=== PATIENT | female | born 1950 | race Caucasian/White ===

== ENCOUNTER → 2023-04-18 08:50 | Outpatient (REF) | payer MEDICARE, SELFPAY ==
[2023-04-18 08:35] VITALS: BMI 28.1
[2023-04-18 09:29] LABS: Urine Albumin Negative (Neg - Trace); Urine Bilirubin Negative (Negative); Urine Character Clear (Clear); Urine Color Yellow; Urine Glucose 2+ (Negative); Urine Ketone Negative (Negative); Urine Leukocyte Negative (Negative); Urine Nitrite Negative (Negative); Urine Occult Blood Trace (Negative); Urine Urobilinogen Negative (Neg - 1+)
[2023-04-18 09:30] LABS: % Eosinophils 1.8 % (0-6); % Immature Granulocytes 0.1 % (0-0.5); % Lymphocytes 25.9 % (20.5-51.1); % Monocytes 11.1 % (1.7-9.3); % Neutrophils 60.1 % (42.2-75.2); Absolute Basophils 0.1 10^3/uL (0-0.2); Absolute Eosinophils 0.1 10^3/uL (0-0.7); Absolute Lymphocytes 1.8 10^3/uL (1.2-3.4); Absolute Monocytes 0.8 10^3/uL (0.1-0.6); Absolute Neutrophils 4.1 10^3/uL (1.4-6.5); Hematocrit 34.6 % (37.0-47.0); Hemoglobin 11.1 g/dL (12.0-16.0); Mean Corp Hgb Conc. 32.1 g/dL (33.0-37.0); Mean Corpuscular Hgb 28.8 pg (27.0-31.0); Mean Corpuscular Volume 89.6 fL (81.0-99.0); Mean Platelet Volume 11.7 fL (7.4-10.4); Nucleated Red Blood Cells % 0 %; Platelet Count 217 10^3/uL (130-400); Red Blood Cell Count 3.86 10^6/uL (4.20-5.40); Red Cell Dist. Width 13.6 % (11.5-14.5); White Blood Cell Count 6.8 10^3/uL (4.8-10.8)
[2023-04-18 09:39] LABS: PT 13.4 Sec (11.4-14.6)
[2023-04-18 09:40] LABS: APTT 33.8 Sec (23.4-35.0)
[2023-04-18 09:45] LABS: ALT (SGPT) 29 U/L (0-35); AST (SGOT) 36 U/L (14-36); Albumin 4.4 g/dl (3.5-5.0); Alkaline Phosphatase 76 U/L (38-126); Blood Urea Nitrogen 18 mg/dl (7-17); Calcium 9.4 mg/dl (8.4-10.2); Carbon Dioxide 25 mmol/L (22-30); Chloride 102 mmol/L (98-107); Direct Bilirubin 0.3 mg/dl (0.0-0.4); Estimated Creatinine Clearance 77 ml/min; Glucose 274 mg/dl (70-99); Potassium 4.2 mmol/L (3.5-5.1); Sodium 138 mmol/L (135-145); Total Bilirubin 0.6 mg/dl (0.2-1.3); Total Protein 7.3 g/dl (6.3-8.2); eGFR > 60.00
[2023-04-18 10:15] LABS: Urine Red Blood Cell 0-2 /HPF (0-2); Urine White Cell 0-2 /HPF (0-5)
--- NOTE | 2023-04-18 10:18 | CM ---
Met with Mrs. Beal is Fernando. She states prior to admission she resides with her spouse in a two story home with five steps to enter. She states she has a full flight of steps to get to bedroom/full bathroom. She states she has a powder room on the
first floor. She states prior to admission she was independent with ambulation and adls. She states she does not have any DME in the home. She states she has a prescription plan and uses [facility]. She states her spouse will be home to
assist in his care at home if needed, The discharge plan is to return home with her spouse and a home visit by the Cardiothoracic Transitional Care Nurse when medically stable.
We reviewed pre-op and post-op routines. We reviewed the shower instructions. She has the soap, written instructions and the Cardiothoracic Surgery Educational Booklet. We also reviewed restrictions including sternal precautions and driving
restrictions. We discussed a home visit by the Cardiothoracic Transitional Care Nurse. She is agreeable to a home visit. The plan is for CABG on April.
[2023-04-18 11:24] LABS: Glycohemoglobin (HgbA1c) 9.5 % (4.0-5.6)
== END ==
LOC: SDSPAT 08:50
PROVIDERS: ATTENDING PHYSICIAN Thoracic Surgery (Cardiothoracic Vascular Surgery); FAMILY PHYSICIAN Family Medicine; OTHER PHYSICIAN Internal Medicine Cardiovascular Disease
DX: I25.10 Atherosclerotic heart disease of native coronary artery without angina pectoris (principal)
CPT/HCPCS: 36415; 71046; 80053; 81003; 81015; 82248; 83036; 85025; 85610; 85730; 86850; 86900; 86901; 86920; 87070; 93005; 94010

== ENCOUNTER → 2023-07-31 07:07 | Outpatient (REF) | payer MEDICARE, SELFPAY | LOC: RAD 07:07 | PROVIDERS: ATTENDING PHYSICIAN Physician Assistant Medical; FAMILY PHYSICIAN Family Medicine | DX: G44.52 New daily persistent headache (NDPH) (principal) | CPT/HCPCS: 70450 ==

== ENCOUNTER 2023-08-02 07:07 | Outpatient (RCR) | payer MEDICARE, SELFPAY ==
[2023-07-26 14:22] LABS: Glucose - Point of Care 198 mg/dl (70-99)
[2023-07-26 14:52] LABS: Glucose - Point of Care 170 mg/dl (70-99)
[2023-07-28 06:35] LABS: Glucose - Point of Care 174 mg/dl (70-99)
[2023-07-28 07:27] LABS: Glucose - Point of Care 190 mg/dl (70-99)
[2023-08-02 07:27] LABS: Glucose - Point of Care 234 mg/dl (70-99)
[2023-08-02 07:27] LABS: Glucose - Point of Care 173 mg/dl (70-99)
== END 2023-08-02 23:59 | disposition home or self-care (01) ==
LOC: CRHB 07:07
PROVIDERS: ATTENDING PHYSICIAN Internal Medicine Cardiovascular Disease
DX: I25.10 Atherosclerotic heart disease of native coronary artery without angina pectoris (principal); Z95.1 Presence of aortocoronary bypass graft
CPT/HCPCS: 82962; G0422; G0423

== ENCOUNTER 2023-08-09 06:48 | Outpatient (RCR) | payer MEDICARE, SELFPAY ==
[2023-08-04 06:45] LABS: Glucose - Point of Care 162 mg/dl (70-99)
[2023-08-04 07:33] LABS: Glucose - Point of Care 232 mg/dl (70-99)
[2023-08-07 06:44] LABS: Glucose - Point of Care 180 mg/dl (70-99)
[2023-08-07 07:45] LABS: Glucose - Point of Care 258 mg/dl (70-99)
[2023-08-09 06:40] LABS: Glucose - Point of Care 164 mg/dl (70-99)
[2023-08-09 07:31] LABS: Glucose - Point of Care 276 mg/dl (70-99)
== END 2023-08-09 23:59 | disposition home or self-care (01) ==
LOC: CRHB 06:48
PROVIDERS: ATTENDING PHYSICIAN Internal Medicine Cardiovascular Disease
DX: I25.10 Atherosclerotic heart disease of native coronary artery without angina pectoris (principal); Z95.1 Presence of aortocoronary bypass graft
CPT/HCPCS: 82962; G0422; G0423

== ENCOUNTER → 2023-08-10 13:51 | Outpatient (REF) | payer MEDICARE, SELFPAY | LOC: DHVS 13:51 | PROVIDERS: ATTENDING PHYSICIAN Surgery Vascular Surgery; FAMILY PHYSICIAN Family Medicine | DX: I65.23 Occlusion and stenosis of bilateral carotid arteries (principal) | CPT/HCPCS: 93880 ==

== ENCOUNTER 2023-08-23 06:17 | Inpatient (IN) | payer MEDICARE, SELFPAY ==
[2023-08-18 10:55] VITALS: BMI 25.7
[2023-08-18 11:21] LABS: INR 1.02; PT 13.2 Sec (11.4-14.6)
[2023-08-18 11:32] LABS: % Basophils 0.9 % (0-2); % Eosinophils 2.7 % (0-6); % Immature Granulocytes 0.3 % (0-0.5); % Monocytes 9.2 % (1.7-9.3); % Neutrophils 59.9 % (42.2-75.2); Absolute Basophils 0.1 10^3/uL (0-0.2); Absolute Eosinophils 0.2 10^3/uL (0-0.7); Absolute Lymphocytes 2.4 10^3/uL (1.2-3.4); Absolute Monocytes 0.8 10^3/uL (0.1-0.6); Absolute Neutrophils 5.3 10^3/uL (1.4-6.5); Hematocrit 33.8 % (37.0-47.0); Hemoglobin 10.7 g/dL (12.0-16.0); Mean Corp Hgb Conc. 31.7 g/dL (33.0-37.0); Mean Corpuscular Hgb 27.7 pg (27.0-31.0); Mean Corpuscular Volume 87.6 fL (81.0-99.0); Nucleated Red Blood Cells % 0 %; Platelet Count 277 10^3/uL (130-400); Red Blood Cell Count 3.86 10^6/uL (4.20-5.40); Red Cell Dist. Width 14.6 % (11.5-14.5); White Blood Cell Count 8.8 10^3/uL (4.8-10.8)
[2023-08-18 11:43] LABS: Blood Urea Nitrogen 21 mg/dl (7-17); Calcium 9.1 mg/dl (8.4-10.2); Carbon Dioxide 27 mmol/L (22-30); Chloride 105 mmol/L (98-107); Estimated Creatinine Clearance 70 ml/min; Glucose 251 mg/dl (70-99); Potassium 4.4 mmol/L (3.5-5.1); Sodium 136 mmol/L (135-145); eGFR > 60.00
--- NOTE | 2023-08-18 12:09 | PTCARENOTE ---
Suzanne at 's office was notified of blood glucose of 251 collected today.
[2023-08-23] VITALS (13 sets, daily range): BP systolic 69–154; BP diastolic 46–80; BMI 27.3
[2023-08-23] MEDS: PERIDEX 0.12% ORAL RINSE 15 ML PO (06:28)
[2023-08-23] MEDS: BACTROBAN NASAL 1 GRAM NASAL (06:28)
[2023-08-23] MEDS: NSS 500 IV (06:29)
--- NOTE | 2023-08-23 06:33 | W.SUR.PREOP ---
Pre-Operative Surgical Note
-
I have examined this patient prior to the performance of the scheduled procedure.
The patient's condition is unchanged from the time of the current History and
Physical and the patient is able to undergo the scheduled procedure.
[2023-08-23 06:54] LABS: Glucose - Point of Care 162 mg/dl (70-99)
--- NOTE | 2023-08-23 09:19 | W.SUR.POST ---
Surgical Immediate Post Op
Note
Pre Op Diagnosis: Left carotid stenosis
Post Op Diagnosis: Left carotid stenosis
Procedure Performed: Left carotid endarterectomy with bovine pericardium patch angioplasty and EEG/SSEP monitoring
Primary Surgeon: Gerson Rowley MD
Assist: GILDA Young
Anesthesia: GETA
Estimated Blood Loss: 15 ml
Fluids: See anesthesia flowsheet
Drains/Shunts: N/A
Specimens/Cultures: Left carotid plaque
Doppler/Duplex/Angio (Y/N): Y
Complications: None
Operative Findings: Upon awakening from anesthesia moves bilateral upper extremities and lower extremities to command and spontaneously
[2023-08-23 09:27] LABS: Glucose - Point of Care 245 mg/dl (70-99)
[2023-08-23 10:02] LABS: Hematocrit 31.1 % (37.0-47.0); Hemoglobin 9.8 g/dL (12.0-16.0); Mean Corp Hgb Conc. 31.5 g/dL (33.0-37.0); Mean Corpuscular Hgb 27.9 pg (27.0-31.0); Mean Corpuscular Volume 88.6 fL (81.0-99.0); Red Blood Cell Count 3.51 10^6/uL (4.20-5.40); Red Cell Dist. Width 14.5 % (11.5-14.5)
[2023-08-23 10:17] LABS: Blood Urea Nitrogen 18 mg/dl (7-17); Calcium 8.5 mg/dl (8.4-10.2); Carbon Dioxide 21 mmol/L (22-30); Chloride 102 mmol/L (98-107); Estimated Creatinine Clearance 70 ml/min; Glucose 267 mg/dl (70-99); Sodium 134 mmol/L (135-145); eGFR > 60.00
[2023-08-23 10:23] LABS: INR 1.18
[2023-08-23] MEDS: NSS 1000 IV (10:23)
--- NOTE | 2023-08-23 10:23 | OR.RPT ---
Operative Report
Operative Report
PROCEDURE DATE: 08/23/2023
Preoperative diagnosis: Critical left carotid artery stenosis, asymptomatic.
Postoperative diagnosis: Same
Procedure: Left carotid endarterectomy with bovine pericardial patch angioplasty and intraoperative EEG/SSEP monitoring.
Surgeon: Amrik
Electrician Supervisor Substation: Catherine
Complications: None
Anesthesia: General
Indications for procedure:
Severe left carotid artery stenosis. Discussed risk/benefits/alternatives of revascularization. She recently completed coronary revascularization. Recovered well from that standpoint. Patient understood all wish to proceed with left carotid
endarterectomy.
Description of procedure:
Patient was identified brought to the operating room placed on the table in supine position. After the adequate administration of anesthesia and perioperative antibiotics she was prepped and draped in the standard surgical fashion. A standard
preoperative timeout was undertaken and everybody was in agreement the plan. A standard longitudinal incision was made in the left neck that was carried through the skin subcutaneous tissue. Using the electrocautery dissection was carried through
the platysma muscle layer and then alongside the anterior medial border of the sternocleidomastoid muscle. Then using a combination of sharp dissection with the Metzenbaum scissors and electrocautery I dissected along the anterior medial border of
the internal jugular vein. The common facial vein branch was ligated between silk ties and then divided. I then deepened my retraction. The common carotid artery was identified and carefully dissected away from the surrounding structures take
great care to avoid any injury to the structures. A vessel loop was passed around it which was double looped, but not yet tightened. Note the vagus nerve was protected from harm's way. I then continued my dissection up the common carotid artery
to the bulb staying only on the anterior surface of the carotid artery. I could palpate hardened plaque at the carotid bulb/proximal internal carotid artery. Then I carried the dissection up to the internal carotid artery and then to the distal
internal carotid artery. I identified where it was soft and carefully circumferentially dissected the internal carotid artery with minimal mobilization and passed a vessel loop around it. Note the hypoglossal nerve was preserved from harm's way.
The patient was given an appropriate dose of heparin 6800 units. Next I dissected the anterior surface of the external carotid artery and superior thyroid branches. These were then carefully circumferentially dissected with minimal mobilization
and vessel loops passed around these which were double looped but not yet tightened. After 3 minutes of heparin circulation time and confirmation of optimization of the blood pressure with my anesthesiology colleagues, I clamped the distal internal
carotid artery where it was soft. There was no immediate EEG or SSEP changes. After 1 minute of test clamp time there was no changes noted. Therefore at this point, the vessel loops on the external carotid artery and superior thyroid branches
were tightened and the common carotid artery was clamped where it was soft proximally. An arteriotomy was made on the common carotid artery with an 11 blade and extended using a Garcia scissor. Was extended the arteriotomy onto the mid to distal
internal carotid artery. Hard and calcified plaque slightly friable, in the proximal ICA resulting in severe stenosis was noted. A Ulster was then used to endarterectomized the plaque. An endarterectomy plane was created, and the plaque was then
endarterectomized. Distally I feathered the plaque out to a nice clean endpoint in the distal internal carotid artery. Next I endarterectomized the intima back to normal intima in the common carotid artery, and the intima was cut flush there. I
then grasped the plaque and everted plaque out of the origin of the external carotid artery. The plaque was then sent off for specimen. The origin of the external carotid artery was carefully visualized and any fine debris were removed with fine
forceps. Proximal and distal endpoints were then carefully inspected. Any fine debris was removed with fine forceps, and the intima was noted to be nicely adherent proximally distally. Next any fine debris were removed throughout the
endarterectomy bed with fine forceps. I then flushed heparinized saline. I was very satisfied. Then, I used a bovine pericardial patch to sew a patch angioplasty with a running 6-0 Prolene suture. Prior to completing and tying down my suture
line, I backbled sequentially each branch and reclamped each branch prior to unclamping the next branch. I then irrigated with heparinized saline. Then I completed and tied down my suture line. We then restored flow in the common carotid and
external carotid arteries. Finally, we released flow in the internal carotid artery. There was excellent pulsatile flow in all 3 vessels. There was an excellent Doppler signal in the internal carotid artery distal to the patch with a good normal
low resistance Doppler signal. There was a good Doppler signal in the external carotid artery as well. A couple 6-0 Prolene afradd-fz-clhft sutures were placed along any bleeding points along the suture line. Protamine was given to reverse the
heparin. Hemostasis was completely achieved. We then irrigated and confirmed full hemostasis. We then closed in layers with 2-0 Vicryl layer to reapproximate the sternocleidomastoid muscle, followed by 3-0 Vicryl platysma muscle running layer,
followed by 4 Monocryl subcuticular stitch. Dermabond was applied. The patient tolerated procedure well. She awoke moving all extremities to command with tongue in the midline.
[2023-08-23 10:24] LABS: APTT 34.7 Sec (23.4-35.0)
--- NOTE | 2023-08-23 10:41 | W.PV.INTER ---
VPI Note
Pre Admission Note
Functional Status: Full
Ambulation: Ambulate Independently
Pre Op Medications
Pre Op ASA: Yes
Pre Op Statin: Yes
Pre Op ANITRA Inhibitor/ARB: No
Pre Op P2y12 Antagonist: None
Pre Op Beta Blockers: Chronic > 30 Days
Pre Op Chronic Anticoagulant: None
Pre Op Cilostazol: No
Post Op Medications
Post Op ASA: Yes
Post Op Statin: Yes
Post Op ANITRA Inhibitor/ARB: No
Post Op P2y12 Antagonist: None
Post Op Beta Blockers: Chronic > 30 Days
Post Op Chronic Anticoagulant: None
Post Op Cilostazol: No
Modified Brenna
Pre Op: 0
Post Op: 0
[2023-08-23 10:45] LABS: Glucose - Point of Care 262 mg/dl (70-99)
[2023-08-23 10:54] LABS: Platelet Count 189 10^3/uL (130-400)
[2023-08-23] MEDS: NOVOLOG vial 8 UNITS SC (11:01)
--- NOTE | 2023-08-23 11:16 | CON.INTV ---
Consultation
Consultation Request
Date/Time Consultation Requested: 08/23/2023-12
Date/Time Consultation Performed: 08/23/2023-2 PM
Requesting Provider: Vascular surgery
Performing Provider: Dr. Pinto
Reason for Consultation: Postop critical care management
Medical History
-
Chief Complaint: Asymptomatic critical left carotid artery stenosis
History of Present Illness:
73-year-old female with asymptomatic critical left carotid artery stenosis underwent left carotid endarterectomy and paper reclaiming machine operator consulted for postoperative critical care management 08/23/2023. Patient feels well. I am seeing her postoperatively in
the surgical intensive care unit. She denies any shortness of breath, significant incisional pain, new weakness, dysarthria, chest pain, abdominal pain, nausea or other constitutional symptoms.
Past Medical History
Past Medical History: None (Hypertension. Hyperlipidemia. Osteopenia. Crohn's disease. CAD/CABG. Diabetes. Ovarian cyst status post oophorectomy 2010. Depression. Former bnhdbr-52-fkvy-year quit 58 years old. ELISE not on CPAP.)
Past Surgical History: None (Bilateral salpingo-oophorectomy. CABG.)
Social History
Tobacco: Former Smoker ([id number]-hvbp-year quit 58 years old)
Alcohol: None
Drug: None
Personal:
Living: With Family
Occupational Exposures: No known asbestos exposure
Environmental Exposures: No known tuberculosis exposure
Family History
Family History: Reviewed & Not Pertinent
Allergies / Home Medications
Allergies
Allergy/AdvReac Type Severity Reaction Status Date / Time
acetaminophen [From Percocet] Allergy Severe Pharmacy Verified 08/23/23 07:05
to Review
oxycodone [From Percocet] Allergy Severe Pharmacy Verified 08/23/23 07:06
to Review
Home Medications
Medication Instructions Recorded Confirmed Last Taken Type
aspirin 81 mg tablet,delayed 81 mg PO DAILY Blood Clot 07/05/10 08/23/23 08/23/23 05:00 History
release Prevention/Tx
cholecalciferol (vitamin D3) 50 50 mcg PO QPM Supplement 03/29/23 08/23/23 08/22/23 10:00 History
mcg (2,000 unit) capsule (Vitamin
D3)
citalopram 20 mg tablet 20 mg PO DAILY Mental 03/29/23 08/23/23 08/22/23 10:00 History
Health/Anxiety
dulaglutide 0.75 mg/0.5 mL 1.5 mg SC MO Diabetes 03/29/23 08/17/23 06/14/23 History
subcutaneous pen injector
(Trulicity)
fluticasone propionate 50 1 spray intranasal DAILY PRN 03/29/23 08/23/23 08/22/23 10:00 History
mcg/actuation nasal ALLERGIES
spray,suspension
metformin 1,000 mg tablet 1,000 mg PO BID Diabetes 03/29/23 08/23/23 08/22/23 18:00 History
nitroglycerin 0.4 mg sublingual 0.4 mg sublingual Q5-15M PRN CHEST 03/29/23 08/17/23 Unknown History
tablet PAIN
repaglinide 2 mg tablet 2 mg PO BID Diabetes 03/29/23 08/23/23 08/22/23 18:00 History
acetaminophen 325 mg tablet 650 mg PO Q4HPRN PRN mild 06/24/23 08/17/23 Unknown Rx
pain,headache,temp >101F #0 tabs
atorvastatin 80 mg tablet (Lipitor) 80 mg PO DAILY #30 tabs 06/24/23 08/23/23 08/22/23 10:00 Rx
metoprolol succinate 25 mg 25 mg PO DAILY 08/23/23 08/23/23 08/23/23 05:00 History
tablet,extended release 24 hr
multivitamin 1 tab PO DAILY 08/23/23 08/23/23 08/22/23 10:00 History
Review of Systems
-
Unable to Obtain full review of systems at this time due to: Other (Per HPI)
Vitals / Labs / Diagnostic Testing
Vital Signs
Temp Pulse Resp BP Pulse Ox
98.0 F 93 13 102/60 99
08/23/23 11:08 08/23/23 11:00 08/23/23 11:00 08/23/23 09:45 08/23/23 11:08
Lab Data
08/23/23 09:50
08/23/23 09:50
Laboratory Results
08/23/23
09:50
PT 15.0 H
INR 1.18
APTT 34.7
Diagnostic Testing:
Physical Exam
-
Exam:
Well-nourished and well-developed in no apparent distress
HEENT-atraumatic, normocephalic
Neck-supple, no JVD, no bruit
Heart-regular rate and rhythm-no murmurs, rubs or gallops
Chest-clear to auscultation, no wheezes, crackles
Back-no tenderness
Abdomen-soft, nontender, nondistended, no hepatosplenomegaly
Extremities-no cyanosis, clubbing, edema and good peripheral pulses
Integument-intact, no rashes, lesions or ecchymosis
Neurology-alert and oriented, nonfocal motor and sensory exam
Assessment
-
73-year-old female with asymptomatic critical left carotid artery stenosis underwent left carotid endarterectomy and paper reclaiming machine operator consulted for postoperative critical care management 08/23/2023.
Assessment
Asymptomatic left carotid artery stenosis
Status post left carotid endarterectomy-Dr. Rowley-08/23/2023
Mild leukocytosis-WBC 12
Hgizhr-dithonqsdh-buupfcnzpe 9.8
Conditions present prior to admission:
Hypertension.
Hyperlipidemia.
Osteopenia.
Crohn's disease.
CAD/CABG-06/2023
Diabetes.
Ovarian cyst status post oophorectomy 2010.
Depression.
Former oeegae-79-jxav-year quit 58 years old.
ELISE not on CPAP.
Neuropathy
Bilateral salpingo-oophorectomy. CABG.
Plan
Postoperative surgical intensive care unit monitoring
Supplemental oxygen as needed
Incentive spirometry
Aspiration precautions
Nebulizers if needed-currently not bronchospastic
Neuro and vascular checks per protocol
Vascular surgery following-correspondence and operative notes reviewed
DVT prophylaxis
Early nutrition
Early mobilization
Critical care statement: A total of 50 minutes of critical care time was provided for this patient today. This includes management of unstable vital signs, evaluation of the patient at bedside, reviewing the patient's pertinent medical records
including radiographs, microbiology, laboratory evaluations, and discussion with primary team, consultants, pharmacy, nutrition, physical therapy, case management, charge nurse, critical care nursing, and respiratory therapy.
Diagnostic data:
Chest x-ray 06/24/2023-small bilateral pleural effusions and compressive atelectasis at the left lung base
CT head 07/31/2023-no acute intracranial abnormalities
Vascular ultrasound 08/10/2019 4-50-70 % right carotid artery stenosis, left internal greater than 70% stenosis suggestive of left subclavian stenosis as well
Transesophageal echocardiogram 06/20/2023-EF 70-75%, status post left atrial appendage clip well-seated,
Data Reviewed
-
EKG: Report reviewed by me
Radiology: Report reviewed by me
CT Scan: Report reviewed by me
Ultrasound: Report reviewed by me
Medical Tests (Nuc Med, Echo etc): Report reviewed by me
Labs: Labs reviewed by me
Old Records: Reviewed
Critical Care Time (in minutes): 50
[2023-08-23] MEDS: TYLENOL 650 MG PO ×2 (11:57→23:23)
[2023-08-23] MEDS: NEO-SYNEPHRINE 250 IV (12:15)
--- NOTE | 2023-08-23 12:51 | PTCARENOTE ---
Received patient post op Left CEA. Site intact, ice pack to sit for comfort. Patient c/c of dull left side headache, patient states has had headache since July post cabg. Patient also reviewing allergies to update pharmacy. Had reaction to
Percocet 20plus years ago symptom was racing heart beat. Patient then stated that she has OxyContin and Tylenol since then with no further issues. Continue to update patient historical. Follow up neurological checks, VS trends and ongoing
assessment.
[2023-08-23 17:03] LABS: Glucose - Point of Care 174 mg/dl (70-99)
[2023-08-23] MEDS: GLUCOPHAGE 1000 MG PO (17:17)
[2023-08-23] MEDS: VITAMIN D3 (cholecalciferol) 50 MCG PO (17:17)
[2023-08-23] MEDS: NOVOLOG FLEXPEN-MODERATE RESISTANCE 1 UNITS SC (18:05)
--- NOTE | 2023-08-23 18:15 | PTCARENOTE ---
No new assessment changes. BP improving wean neosynephrine off at this assessment. Dr Rowley and vascular team at bedside for pm update. Continue follow up neurologic checks. Patient remains AAOX3, tongue midline smile symmetrical still with dull
headache unchanged thru shift and same intensity as in past noted by vascular team. Continue to monitor for any changes. Dinner at this time. Continue with teaching and supportive cares.
[2023-08-23] MEDS: HEPARIN 5000 UNITS SC (19:51)
[2023-08-23] MEDS: NSS IV (21:27)
[2023-08-23 21:44] LABS: Glucose - Point of Care 270 mg/dl (70-99)
--- NOTE | 2023-08-23 23:12 | PTCARENOTE ---
pt assessed as documented. had a friend in to visit earlier. in good spirits. alert and oriented x3. pleasant and cooperative. no c/o pain.
[2023-08-24] VITALS: BP 104/87
[2023-08-24 04:00] VITALS: BP 121/61
[2023-08-24 04:43] LABS: Hematocrit 29.1 % (37.0-47.0); Hemoglobin 9.1 g/dL (12.0-16.0); Mean Corp Hgb Conc. 31.3 g/dL (33.0-37.0); Mean Corpuscular Hgb 27.5 pg (27.0-31.0); Mean Corpuscular Volume 87.9 fL (81.0-99.0); Mean Platelet Volume 11.3 fL (7.4-10.4); Platelet Count 208 10^3/uL (130-400); Red Blood Cell Count 3.31 10^6/uL (4.20-5.40); Red Cell Dist. Width 14.5 % (11.5-14.5); White Blood Cell Count 11.8 10^3/uL (4.8-10.8)
[2023-08-24 04:53] LABS: INR 1.14; PT 14.6 Sec (11.4-14.6)
[2023-08-24 04:55] LABS: APTT 33.1 Sec (23.4-35.0)
--- NOTE | 2023-08-24 05:03 | PTCARENOTE ---
pt reassessed, no c/o pain, headache subsided. labs drawn. pt using the bedpan.
[2023-08-24 05:06] VITALS: BMI 27.3
[2023-08-24 05:17] LABS: Blood Urea Nitrogen 20 mg/dl (7-17); Calcium 8.8 mg/dl (8.4-10.2); Carbon Dioxide 21 mmol/L (22-30); Chloride 105 mmol/L (98-107); Estimated Creatinine Clearance 79 ml/min; Glucose 181 mg/dl (70-99); Potassium 4.3 mmol/L (3.5-5.1); Sodium 135 mmol/L (135-145); eGFR > 60.00
--- NOTE | 2023-08-24 07:37 | W.PN.INTV ---
Today's Communication / Plan
Recommendations
Neurovascularly intact
Increase activity
Advance diet
Patient likely transferred to telemetry or discharged-call pulmonary if respiratory issues arise
Assessment
-
73-year-old female with asymptomatic critical left carotid artery stenosis underwent left carotid endarterectomy and pro shop attendant consulted for postoperative critical care management 08/23/2023.
Assessment
Asymptomatic left carotid artery stenosis
Status post left carotid endarterectomy-Dr. Rowley-08/23/2023
Mild leukocytosis-WBC 12
Gyqbpw-qnydxdvzaa-wwhzzncgrg 9.8
Conditions present prior to admission:
Hypertension.
Hyperlipidemia.
Osteopenia.
Crohn's disease.
CAD/CABG-06/2023
Diabetes.
Ovarian cyst status post oophorectomy 2010.
Depression.
Former haeuix-83-oiev-year quit 58 years old.
ELISE not on CPAP.
Neuropathy
Bilateral salpingo-oophorectomy. CABG.
Plan
Hemodynamically and neurovascularly intact
Wean supplemental oxygen
Incentive spirometry encourage
Aspiration precautions
Monitor hemoglobin
Transfuse if needed
Monitor blood sugars
Insulin supplementation if needed
Neuro and vascular checks per protocol also continue
Vascular surgery closely
DVT prophylaxis recommended
Nutrition
Increase activity/physical therapy
Patient can be transferred out of ICU-call pulmonary if respiratory issues arise
Reviewed the patient's pertinent medical records including radiographs, microbiology, laboratory evaluations, and discussion with primary team, consultants, pharmacy, nutrition, physical therapy, case management, charge nurse, critical care
nursing, and respiratory therapy.
Diagnostic data:
Chest x-ray 06/24/2023-small bilateral pleural effusions and compressive atelectasis at the left lung base
CT head 07/31/2023-no acute intracranial abnormalities
Vascular ultrasound 08/10/2019 4-50-70 % right carotid artery stenosis, left internal greater than 70% stenosis suggestive of left subclavian stenosis as well
Transesophageal echocardiogram 06/20/2023-EF 70-75%, status post left atrial appendage clip well-seated,
Subjective Dataa
Subjective Data
Date of Service:
Date of Service: August 24, 2023
Chief Complaint: Check Weigher Follow Up and Pulmonary Follow Up
Subjective:
Doing well, no neurologic symptoms, no shortness of breath, chest pain, abdominal pain, weakness, numbness or speech difficulties
Review of Systems
General: Other (Per HPI)
Objective Data
Data Reviewed
Vital Signs / I&O / Oxygen:
Vital Signs
Temp Pulse Resp BP Pulse Ox
98.0 F 95 20 121/61 98
08/24/23 03:39 08/24/23 06:00 08/24/23 06:00 08/24/23 04:00 08/23/23 21:19
Intake and Output
08/23/23 08/24/23 08/25/23
06:59 06:59 06:59
Intake Total 1458 / 1458
Output Total 1250 / 1250
Balance 208 / 208
SaO2 98
Nasal Cannula flow liters per 2
minute
Physical Exam
General: Respiratory Distress (n) and Comfortable
HEENT: Normocephalic, Anicteric and Moist Mucous Membranes
Cardiovascular: Regular Rhythm
Respiratory: Wheeze (n), Crackles (n), Rhonchi (n), Non-Labored Respirations, Accessory Resp Muscle Use (n) and Stridor (n)
GI: Soft, Non Distended and Non Tender
Neurology: Awake, Alert and No Motor Deficits
Skin: Warm, Good Color, Cyanosis (n), Jaundice (n) and Rash (n)
Labs/Micro/Reports
Lab Data
08/24/23 04:36
08/24/23 04:36
Laboratory Results
08/23/23 08/24/23
09:50 04:36
PT 15.0 H 14.6
INR 1.18 1.14
APTT 34.7 33.1
--- NOTE | 2023-08-24 07:42 | W.PN.VS ---
Addendum entered and electronically signed by Gerson Rowley MD 08/24/23 10:41:
Seen and examined with CARMEN Alexander. Agree with findings as noted below. Patient without any complaints. Left neck incision is clean dry and intact, no hematoma. Neurologically no focal deficits, moves all extremities well, tongue midline. Plan/as
discussed and noted below.
Original Note:
Today's Communication / Plan
-
Seen and assessed Dr. Rowley
Assessment/Plan
-
POD 1 left CEA
Plan:
-DC A-line
-DC IV fluids
-Out of bed to chair/ambulate
-Increase diet
-Likely DC later today
Subjective Data
-
Date of Service: August 24, 2023
Patient seen at bedside this a.m. with Dr. Rowley. Patient offers no complaints at this time, no events overnight.
Objective Data
-
Vital Signs
Temp Pulse Resp BP Pulse Ox
98.0 F 95 20 121/61 98
08/24/23 03:39 08/24/23 06:00 08/24/23 06:00 08/24/23 04:00 08/23/23 21:19
Intake and Output
08/23/23 08/24/23 08/25/23
06:59 06:59 06:59
Intake Total 1458 / 1458
Output Total 1250 / 1250
Balance 208 / 208
Intake:
Oral fluids 720 / 720
IV fluids (Total) 738 / 738
NSS 640 / 640
Neosynephrine 18 / 18
Nss 1,000 ml @ 80 mls/hr IV . 80 / 80
[id number] [id number] Rx#:[id number]
Output:
Urine, Voided 1250 / 1250
Other:
Number of approximated LARGE 1
amounts of urine
Lab Results
08/24/23 04:36
08/24/23 04:36
Calcium 8.8 mg/dl (8.4-10.2) 08/24/23 04:36
Physical Exam
-
AAOx3
No tachypnea on room air
No tachycardia
Abdomen soft
Neck site clean dry and intact and well-approximated
Moves all extremities equally
Tongue midline
[2023-08-24 07:43] LABS: Glucose - Point of Care 164 mg/dl (70-99)
[2023-08-24 08:00] VITALS: BP 127/59
[2023-08-24 08:42] LABS: Glycohemoglobin (HgbA1c) 7.4 % (4.0-5.6)
[2023-08-24] MEDS: NOVOLOG FLEXPEN-MODERATE RESISTANCE 1 UNITS SC (08:46)
[2023-08-24] MEDS: ASPIR LOW (ENTERIC COATED) 81 MG PO (08:47)
[2023-08-24] MEDS: GLUCOPHAGE 1000 MG PO (08:47)
[2023-08-24] MEDS: TOPROL XL 25 MG PO (08:47)
[2023-08-24] MEDS: CELEXA 20 MG PO (08:47)
[2023-08-24] MEDS: THERAGRAN 1 TABLET PO (08:47)
[2023-08-24] MEDS: HEPARIN 5000 UNITS SC (08:47)
[2023-08-24] MEDS: PRANDIN 2 MG PO (08:47)
[2023-08-24] MEDS: LIPITOR 80 MG PO (08:47)
[2023-08-24 10:17] VITALS: BP 131/57
--- NOTE | 2023-08-24 10:45 | CM ---
CM following re: discharge planning.
Discussed in Rounds, reviewed pt's chart, met with pt.
Pt is a 73 year old female, admitted with primary dx of POD 1 s/p left CEA. Per Vascular surgery pt is doing well, no complaints and pt probably will be discharged home this afternoon. Pt is aware, expressed her agreement with a plan for discharge
and pt stated her will transport home. IMM reviewed, placed in chart, pt has a copy.
Pt reports she lives with and a son in a 2SH, 3 steps to enter. 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 No DME, VN or SNF history.
PCP: Masood Quiroz
Pharmacy: [facility]
D/C plan: home with no needs. to transport.
CM will follow with discharge plan updates as hospitalization progresses
--- NOTE | 2023-08-24 11:28 | PTCARENOTE ---
Received pt AOx3, R radial A line dc'd as ordered, dressing now c/d/i. Assisted OOB to bathroom, stand by assist only. No complaints, neuro checks intact. L neck s/p CEA w/ surgical adhesive intact, HETAL, mild swelling and ecchymosis noted. VSS.
Expected discharge later today. Will continue to monitor.
[2023-08-24 11:56] LABS: Glucose - Point of Care 304 mg/dl (70-99)
--- NOTE | 2023-08-24 12:00 | W.DS.TRANS ---
DC Summary - [employer]
-
Discharge Instructions:
Discharge Diagnosis/Procedures Left carotid endarterectomy
Diet As tolerated
Activity No strenuous activity
Driving Restrictions Not until seen by your Dr
Bathing Restrictions OK to Shower
Instructions:
Stand-Alone Forms: DC Instr - Vascular OR
Changes to Home Medications: No
Discharge Medications:
DC Medications w/original date entered in [facility]
aspirin 81 mg tablet,delayed release 81 mg PO DAILY Blood Clot Prevention/Tx 07/05/10
cholecalciferol (vitamin D3) 50 mcg (2,000 unit) capsule (Vitamin D3) 50 mcg PO QPM Supplement 03/29/23
citalopram 20 mg tablet 20 mg PO DAILY Mental Health/Anxiety 03/29/23
dulaglutide 0.75 mg/0.5 mL subcutaneous pen injector (Trulicity) 1.5 mg SC MO Diabetes 03/29/23
fluticasone propionate 50 mcg/actuation nasal spray,suspension 1 spray intranasal DAILY PRN ALLERGIES 03/29/23
metformin 1,000 mg tablet 1,000 mg PO BID Diabetes 03/29/23
nitroglycerin 0.4 mg sublingual tablet 0.4 mg sublingual Q5-15M PRN CHEST PAIN 03/29/23
repaglinide 2 mg tablet 2 mg PO BID Diabetes 03/29/23
acetaminophen 325 mg tablet 650 mg PO Q4HPRN PRN mild pain,headache,temp >101F #0 tabs 06/24/23
atorvastatin 80 mg tablet (Lipitor) 80 mg PO DAILY #30 tabs 06/24/23
metoprolol succinate 25 mg tablet,extended release 24 hr 25 mg PO DAILY Blood Pressure 08/23/23
multivitamin 1 tab PO DAILY Supplement 08/23/23
Home Medication Changes
Pending Results: No
[2023-08-24 12:01] VITALS: BP 148/61
--- NOTE | 2023-08-24 12:01 | W.DCSUMMARY ---
Discharge Summary
Discharge Data
Date of Admission: 08/23/23
Date of Discharge: 08/24/23
-
Pending Results: No
Hospital Course
Attending: Amrik
Consultants: Pulmonary medicine
Allergies: NKDA
Procedure with date: : Left carotid endarterectomy with bovine pericardial patch angioplasty and EEG monitoring
History of present illness: The patient is an 73-year-old female with multiple medical conditions including: carotid stenosis, osteopenia, Crohn's disease, hyperlipidemia, diabetes, cystic ovaries, high cholesterol, depression, hypertension, former
smoker, coronary artery disease with coronary artery bypass graft x 3, neuropathy, obstructive sleep apnea, arthritis. Patient presented on 08/23/2023 for scheduled procedure with Dr. Rowley. Patient presented at baseline health with no reports of
recent illness or trauma.
Hospital Course: Briefly, the patient underwent scheduled carotid endarterectomy without complications, and recovered in PACU. Following recovery phase one and two patient was transferred to intensive care unit per protocol for continued hemodynamic
monitoring. Steam Trap Man consulted to aid in medical management from a critical care perspective. POD #1 (08/24/2023) Patient neurologically intact, face symmetrical, and tolerating PO diet. Surgical neck site clean, dry, and intact with suture line
well approximated and soft. No evidence of hematoma. Arterial line and IV fluids discontinued. Patient able to ambulate without difficulty or incident. Patient stable for discharge to home.
Prescriptions and follow up appointment are included in the DC summary stem roller or crusher operator note. All instructions were given to the patient in both written and verbal form and the patient expressed understanding.
Discharge Plan
-
Patient Disposition: Home (Routine Discharge)
Discharge Diagnosis/Procedures: Left carotid endarterectomy
Condition: Good
Diet: As tolerated
Activity: No strenuous activity
Driving Restrictions: Not until seen by your Dr
Bathing Restrictions: OK to Shower
Activity Restrictions/Additional Instructions:
If you experience severe constant headache, weakness to an arm or leg, change in vision, trouble speaking or any stroke-like symptom, call 911 immediately
If you experience swelling, increased bruising, drainage from neck site, or fever, please call the office
Stand Alone Forms: DC Instr - Vascular OR
Referrals:
Anne-Marie Rivero PA-C [Specified Professional Personl] - 09/06/23 10:30 am (Vascular follow up)
Alysia Quiroz DO [Family Provider] -
Prescriptions:
Continued
aspirin 81 MG tablet,delayed release (DR/EC)
81 mg PO DAILY
repaglinide 2 mg Tablet
2 mg PO BID
citalopram 20 mg Tablet
20 mg PO DAILY
metformin 1,000 mg Tablet
1,000 mg PO BID
nitroglycerin 0.4 mg Tablet, Sublingual
0.4 mg SUBLINGUAL Q5-15M PRN (Reason: CHEST PAIN)
fluticasone propionate 50 mcg/actuation [place],Suspension
1 spray INTRANASAL DAILY PRN (Reason: ALLERGIES)
cholecalciferol (vitamin D3) [Vitamin D3] 50 mcg (2,000 unit) Capsule
50 mcg PO QPM
Trulicity 0.75 mg/0.5 mL Pen Injector
1.5 mg SC MO
atorvastatin [Lipitor] 80 mg tablet
80 mg PO DAILY Qty: 30 2RF
acetaminophen 325 mg Tablet
650 mg PO Q4HPRN PRN (Reason: mild pain,headache,temp >101F ) Qty: 0 0RF
multivitamin Tablet
1 tab PO DAILY
metoprolol succinate 25 mg Tablet Extended Release 24 Hr
25 mg PO DAILY
Discharge Orders:
Discharge Patient (As Directed); Ordered 08/24/23
Ordered By: Ambar Alexander
[2023-08-24] MEDS: NOVOLOG FLEXPEN-MODERATE RESISTANCE 7 UNITS SC (12:15)
--- NOTE | 2023-08-24 12:39 | PTCARENOTE ---
Pt walked halls w/ this RN, no complaints. Discharge instructions reviewed w/ pt. Questions answered. Tele box and IV removed. Will eat lunch and await ride home.
== END 2023-08-24 13:05 | disposition home or self-care (01) | DRG 39 ==
LOC: ICU 06:17
PROVIDERS: Nurse Practitioner; ADMITTING PHYSICIAN Surgery Vascular Surgery; CONSULT PHYSICIAN Internal Medicine Critical Care Medicine; FAMILY PHYSICIAN Family Medicine
PROC: 03CL0ZZ Extirpation of Matter from Left Internal Carotid Artery, Open Approach (ICD-10-PCS; 2023-08-23)
PROC: 03UL0KZ Supplement Left Internal Carotid Artery with Nonautologous Tissue Substitute, Open Approach (ICD-10-PCS; 2023-08-23)
DX: I65.22 Occlusion and stenosis of left carotid artery (principal); E78.00 Pure hypercholesterolemia, unspecified; E11.40 Type 2 diabetes mellitus with diabetic neuropathy, unspecified; G47.33 Obstructive sleep apnea (adult) (pediatric); I10 Essential (primary) hypertension; I25.10 Atherosclerotic heart disease of native coronary artery without angina pectoris; M85.80 Other specified disorders of bone density and structure, unspecified site; Z95.1 Presence of aortocoronary bypass graft
CPT/HCPCS: 88304; 88305; 88311; 35301; 36415; 80048; 82962; 83036; 85025; 85027; 85610; 85730; 86850; 86900; 86901; 87070

== ENCOUNTER → 2023-09-06 11:17 | Outpatient (REF) | payer MEDICARE, SELFPAY | LOC: WDC 11:17 | PROVIDERS: ATTENDING PHYSICIAN Family Medicine | DX: Z12.31 Encounter for screening mammogram for malignant neoplasm of breast (principal) | CPT/HCPCS: 77063; 77067 ==

== ENCOUNTER → 2023-10-12 07:46 | Outpatient (REF) | payer MEDICARE, SELFPAY | LOC: RAD 07:46 | PROVIDERS: ATTENDING PHYSICIAN Physician Assistant; FAMILY PHYSICIAN Family Medicine | DX: I65.23 Occlusion and stenosis of bilateral carotid arteries (principal) | CPT/HCPCS: 93880 ==

== ENCOUNTER 2023-11-27 07:49 | Outpatient (RCR) | payer MEDICARE, SELFPAY ==
[2023-11-17 08:16] LABS: Glucose - Point of Care 253 mg/dl (70-99)
[2023-11-17 09:16] LABS: Glucose - Point of Care 221 mg/dl (70-99)
[2023-11-20 08:21] LABS: Glucose - Point of Care 232 mg/dl (70-99)
[2023-11-20 09:05] LABS: Glucose - Point of Care 225 mg/dl (70-99)
[2023-11-24 08:08] LABS: Glucose - Point of Care 205 mg/dl (70-99)
[2023-11-24 09:05] LABS: Glucose - Point of Care 201 mg/dl (70-99)
[2023-11-27 08:18] LABS: Glucose - Point of Care 228 mg/dl (70-99)
[2023-11-27 09:10] LABS: Glucose - Point of Care 195 mg/dl (70-99)
== END 2023-11-27 23:59 | disposition home or self-care (01) ==
LOC: CRHB 07:49
PROVIDERS: ATTENDING PHYSICIAN Internal Medicine Cardiovascular Disease
DX: I25.10 Atherosclerotic heart disease of native coronary artery without angina pectoris (principal); Z95.1 Presence of aortocoronary bypass graft
CPT/HCPCS: 82962; G0422; G0423

== ENCOUNTER 2024-01-11 16:02 | Inpatient (IN) | payer MEDICARE, SELFPAY ==
[2024-01-11] VITALS (19 sets, daily range): BP systolic 105–183; BP diastolic 56–92; BMI 27.0
--- NOTE | 2024-01-11 14:15 | ED.GENMED ---
History of Present Illness
General
Chief Complaint: Dizziness
Time Seen by Provider: 01/11/24 13:50
History of Present Illness
History of Present Illness:
73-year-old female presents to the emergency department for evaluation of general fatigue, dyspnea on exertion, crampy leg pain with exertion for the past 4 to 5 days. Denies any chest pain. She does report very dark diarrhea for the past few days
as well. Noted that her blood sugar was in excess of 350 today, not on insulin. No fevers or night sweats. She is on aspirin
Past History
Past History
ED Past Medical History: Hypercholesterolemia
ED Past Surgical History: None
Social History
Tobacco: Former smoker
Living: with family
Employment: Employed
Review of Systems
Review of Systems
Allergies reviewed?: Yes
All Other Systems: ROS reviewed and negative except as documented in HPI and ROS
Phy Exam
Physical Exam
Physical Exam:
GEN: No distress, generally pale
Eyes: PERRLA, EOMs intact, no scleral icterus
HENT: NCAT, oral mucosa moist
Lungs: CTAB, no wheezes, rales, rhonchi, normal chest wall excursion
Cardiac: Tachycardic, regular
Abdomen: S, NT, ND, NABS, no masses or hepatosplenomegaly
Rectal: Scant black stool in the rectal vault, grossly heme positive
Neuro: AO x 3
MSK: No gross deformity or ecchymosis. No edema. No digital clubbing
Skin: No rashes, petechiae. Generally pale, no jaundice
Psych: Calm, cooperative, proper hygiene
Course
Orders/Labs/Results
Orders:
Orders
01/11/24 Breakfast
Clear Liquid
At Your Request: Full Participation
Clear Liquids: No red liquids
01/11/24 13:22
Electrocardiogram (*1) Urgent
Reason for Study: Vertigo / Dizzy
01/11/24 13:23
EKG- Treatment ONCE
01/11/24 14:10
Acetone [B-Hydroxybutyrate] Urgent
Complete Blood Count/With Diff Urgent
Comprehensive Metabolic Panel Urgent
Ferritin Urgent
Folate Urgent
Comment: IRON,FERRITIN,TIBC,B12,FOLATE ADDED ON BY FLOOR3:50PM 01-11-24
Iron Urgent
Total Iron Binding Urgent
Transferrin [S] Urgent
Comment: ADD ON
Troponin I Urgent
Vitamin B12 Urgent
01/11/24 14:13
0.9% Sodium Chloride 1000 ml [Nss] 1,000 ml IV BOLUS
01/11/24 14:21
Urinalysis Reflex To Culture Urgent
Date Specimen was Collected: 01/11/24
Time Specimen was Collected: 14:19
Comment: ]
Venous Blood Gas Urgent
%Oxygen/Room Air: 100
01/11/24 14:49
* Blood Bank Products Urgent
Blood Bank Products: *Packed RBC Leuko(PRBC's)
Quantity: 2
Transfuse Today: Yes
Reason: Anemia
01/11/24 14:52
Type+Screen Urgent
Pantoprazole [Protonix IV] 80 mg IV NOW STA
01/11/24 15:00
Pantoprazole 80 mg/100 ml Nss [Protonix] 80 mg in 100 ml IV Q10H
01/11/24 15:22
Insulin Aspart [NOVOLOG vial] 7 units SC NOW STA
01/11/24 15:53
Add On- LAB Routine
Tests Added?: iron, ferritin, transferrin, TIBC, B12, folate
Admit/Transfer Patient As Directed
Co-Sign Provider:
Level of Care: Inpatient admission
Assign to:: IMU- Intermediate Care
Physician / Group: luis gaspar
Diagnosis: Acute GI bleed
Reason for Hospitalization: Acute GI bleed
Expected length of stay greater than two midnights?: Yes
ELOS- Estimated Length of Stay in days: 3
I certify the patient meets the requirements for IP care: Yes
PRN Pain Medication Management As Directed
May give lesser potent ordered pain med per pt: Yes
preference::
Protocol:: Medication orders for pain may be administered in a
manner that supports deferring to patient preference
when the pt is:
- Requesting an ordered lesser potent pain medication.
Least to most potent pain medications are defined
as: acetaminophen < NSAID < tramadol < opioids
(morphine, oxycodone, hydromorphone).
- Requesting a lesser dose of the same medication IF
ORDERED.
- Requesting a less intrusive route of administration
if both routes are prescribed by the provider (PO <
IV).
01/11/24 15:54
Code Status As Directed
Resuscitation Status: Full Code
01/11/24 15:56
Metoprolol [Lopressor] 5 mg IV Q6HPRN PRN
01/11/24 15:57
Dextrose 50%-Water [Dextrose 50% Syringe] 12.5 grams IV [id number] PRN
Glucagon [GlucaGen] 1 mg IM PRN PRN
Bedside Glucose Monitoring As Directed
Frequency: AC&HS
Additional Instructions:: Change to q6h if pt on TPN, tube feeding or not eating
01/11/24 16:00
GASTROINTESTINAL CONSULT Urgent
Consulting Provider: Hellen Trejo
Was physician already notified: Yes
01/11/24 16:30
Insulin Aspart Corrective Low [Novolog Flexpen-Low Resistance] See Protocol SC AC
01/11/24 17:27
0.9% Sodium Chloride 1000 ml [Nss] 1,000 ml IV 70 mls/hr
01/11/24 17:27
Activity As Directed
Activity Level: As Tolerated
Intake/ Output As Directed
Frequency: Per unit guidelines
Pneumatic Compression Sleeves As Directed
Type: Knee high
Vital Signs As Directed
Frequency: Per unit guidelines
Weight As Directed
Frequency: Daily
Pulse Ox/spot Check [RESP] Routine
Quantity: 1
DX Deep Vein Thrombosis Video Routine
01/11/24 20:00
H&H Q6H
01/11/24 22:00
Insulin Glargine Lantus [Lantus] 5 units Subcutaneous Insulin Syringe [Syringe-Insulin] 0 unit SC HS
01/12/24 02:00
H&H Q6H
01/12/24 06:00
Basic Metabolic Panel IN AM
Complete Blood Count/With Diff IN AM
Glycohemoglobin (HgbA1c) IN AM
01/12/24 08:00
H&H Q6H
Citalopram [Celexa] 20 mg PO DAILY
Metoprolol Xl [Toprol Xl] 25 mg PO DAILY
01/13/24 06:00
Basic Metabolic Panel IN AM
Complete Blood Count/With Diff IN AM
Abnormal Lab Results
01/11/24 01/11/24 01/11/24
14:10 14:21 14:52
WBC 13.9 H 10^3/uL
(4.8-10.8)
RBC 2.46 L 10^6/uL
(4.20-5.40)
Hgb 6.6 L* g/dL
(12.0-16.0)
Hct 20.5 L* %
(37.0-47.0)
MCH 26.8 L pg
(27.0-31.0)
MCHC 32.2 L g/dL
(33.0-37.0)
RDW 16.2 H %
(11.5-14.5)
MPV 11.2 H fL
(7.4-10.4)
Abs Immat Gran (auto) 0.2 H 10^3/uL
(0-0.05)
Absolute Neuts (auto) 10.7 H 10^3/uL
(1.4-6.5)
Absolute Monos (auto) 0.8 H 10^3/uL
(0.1-0.6)
Immature Gran % 1.3 H %
(0-0.5)
Neutrophils % 76.9 H %
(42.2-75.2)
Lymphocytes % 14.8 L %
(20.5-51.1)
VBG HCO3 19.1 L mmol/L
(22-27)
Sodium 132 L mmol/L
(135-145)
Carbon Dioxide 18 L mmol/L
(22-30)
BUN 25 H mg/dl
(7-17)
Glucose 344 H mg/dl
(70-99)
% Saturation 8 L %
(20-50)
Total Protein 6.2 L g/dl
(6.3-8.2)
Urine Ketones 1+ A
(Negative)
Urine Glucose 3+ A
(Negative)
B-Hydroxybutyrate 0.38 H mmol/L
(0.02-0.27)
Crossmatch IS Only See Detail
01/11/24 14:10
01/11/24 14:10
Vital Signs
Initial and Last Documented VS:
Initial Vital Signs
Temp Pulse Resp BP Pulse Ox
97.6 F 105 18 128/81 100
01/11/24 13:20 01/11/24 13:20 01/11/24 13:20 01/11/24 13:20 01/11/24 13:20
Last Documented Vital Signs
Temp Pulse Resp BP Pulse Ox
97.8 F 119 18 172/71 99
01/11/24 16:45 01/11/24 16:45 01/11/24 16:45 01/11/24 16:45 01/11/24 16:45
MDM/Problems Addressed
MDM/Problems Addressed:
Patient is markedly anemic likely from upper GI bleed evidenced by heme positive stool. Blood transfusion and PPIs ordered in the emergency department. Do not see any indication for CT imaging of the abdomen at this time. Will admit to the
hospitalist service for further management
Comment
Comment:
EKG independently interpreted by me shows sinus tachycardia at a rate of [address] changes concerning for ischemia
*Critical Care Note
Total Time (30-74mins, 75-104mins- exclusive of procedures): Not Applicable
ED Attending Note
-
Portions of this chart may have been created with voice recognition software.� Occasional wrong word or��sound alike� substitutions may have occurred due to the inherent limitations of voice recognition software.
Discharge Plan
Departure
Patient Disposition: Admit
Date of Disposition: 01/11/24
Time of Disposition: 15:28
Presentation/result/management discussed w/ accepting MD/DO: Hospitalist
Discharge Problem:
Acute upper GI bleed, Acute hyperglycemia
Interventions
Interventions:
*Risk Screen - Suicide Last Done: 01/11/24 13:21
*General Assessment Last Done: 01/11/24 13:21
*Neglect/Abuse Screening Last Done: 01/11/24 13:21
ED- Fall Risk Assessment Last Done: 01/11/24 14:30
*ED COVID-19 Vaccine History Last Done: 01/11/24 14:30
*Nursing Disposition Last Done: 01/11/24 16:37
ED- Neurological Assessment Last Done: 01/11/24 14:30
ED- Cardiac Assessment Last Done: 01/11/24 14:30
UG-Jhtaky-Qkhbivqgrv Assessment Last Done: 01/11/24 14:30
ED Swallowing Screen Last Done: 01/11/24 14:30
Discharge Date and Time
Discharge Date/Time: 01/11/24 16:50
[2024-01-11] MEDS: NSS 1000 IV ×2 (14:22→17:37)
[2024-01-11 14:38] LABS: Venous Blood Gas B.E. -6.4 mmol/L (-4 to +4); Venous Blood Gas HCO3 19.1 mmol/L (22-27); Venous Blood Gas O2 Sat % 80.6 %; Venous Blood Gas pCO2 37 mmHg (35-48); Venous Blood Gas pH 7.32 (7.32-7.43); Venous Blood Gas pO2 46 mmHg (30-50)
[2024-01-11 14:40] LABS: % Basophils 0.7 % (0-2); % Eosinophils 0.6 % (0-6); % Immature Granulocytes 1.3 % (0-0.5); % Lymphocytes 14.8 % (20.5-51.1); % Monocytes 5.7 % (1.7-9.3); % Neutrophils 76.9 % (42.2-75.2); Absolute Basophils 0.1 10^3/uL (0-0.2); Absolute Eosinophils 0.1 10^3/uL (0-0.7); Absolute Immature Granulocytes 0.2 10^3/uL (0-0.05); Absolute Lymphocytes 2.1 10^3/uL (1.2-3.4); Absolute Monocytes 0.8 10^3/uL (0.1-0.6); Absolute Neutrophils 10.7 10^3/uL (1.4-6.5); Hematocrit 20.5 % (37.0-47.0); Hemoglobin 6.6 g/dL (12.0-16.0); Mean Corp Hgb Conc. 32.2 g/dL (33.0-37.0); Mean Corpuscular Hgb 26.8 pg (27.0-31.0); Mean Corpuscular Volume 83.3 fL (81.0-99.0); Mean Platelet Volume 11.2 fL (7.4-10.4); Nucleated Red Blood Cells % 0 %; Platelet Count 298 10^3/uL (130-400); Red Blood Cell Count 2.46 10^6/uL (4.20-5.40); Red Cell Dist. Width 16.2 % (11.5-14.5); White Blood Cell Count 13.9 10^3/uL (4.8-10.8)
[2024-01-11 14:54] LABS: Troponin I < 0.012 ng/ml
[2024-01-11] MEDS: PROTONIX IV 80 MG IV (14:54)
[2024-01-11 14:55] LABS: Urine Albumin Negative (Neg - Trace); Urine Bilirubin Negative (Negative); Urine Character Clear (Clear); Urine Color Yellow; Urine Glucose 3+ (Negative); Urine Ketone 1+ (Negative); Urine Leukocyte Negative (Negative); Urine Nitrite Negative (Negative); Urine Occult Blood Negative (Negative); Urine Urobilinogen Negative (Neg - 1+)
[2024-01-11] MEDS: PROTONIX 100 IV (15:04)
[2024-01-11 15:17] LABS: ALT (SGPT) 22 U/L (0-35); AST (SGOT) 27 U/L (14-36); Albumin 4.1 g/dl (3.5-5.0); Alkaline Phosphatase 79 U/L (38-126); Blood Urea Nitrogen 25 mg/dl (7-17); Calcium 9.2 mg/dl (8.4-10.2); Carbon Dioxide 18 mmol/L (22-30); Chloride 103 mmol/L (98-107); Glucose 344 mg/dl (70-99); Potassium 4.8 mmol/L (3.5-5.1); Sodium 132 mmol/L (135-145); Total Bilirubin 0.5 mg/dl (0.2-1.3); Total Protein 6.2 g/dl (6.3-8.2); eGFR > 60.00
[2024-01-11 15:24] LABS: B-Hydroxybutyrate 0.38 mmol/L (0.02-0.27)
[2024-01-11] MEDS: NOVOLOG vial 7 UNITS SC (15:45)
--- NOTE | 2024-01-11 16:00 | HPS.HSE ---
Family Physician
-
Family Physician: Alysia Quiroz
Chief Complaint
-
Dizziness, dark stool
History of Present Illness
73-year-old female with past medical history of recent multivessel disease status post CABG, carotid enterectomy, hypertension, hyperlipidemia, diabetes mellitus came to the hospital with dizziness and fatigue. Patient also noted dark stool from
past couple days. Denies any abdominal pain. Denies any nausea, vomiting, diarrhea, constipation. Denies any recent travel. Denies any history of ulcers.
Medical History
Past Medical History
Past Medical History: Reports CAD, HTN and Hypercholesterolemia
Additional Past Medical History:
Carotid disease
Past Surgical History: Reports Other (CABG, carotid enterectomy)
Social History
Tobacco: Former Smoker
Family History
Family History: Not pertinent
Allergies / Home Medications
Allergies reflects when Allergies were last updated in [employer].
Home Medications with original date entered in [employer]
Allergy/Medication List:
Allergies
Allergy/AdvReac Type Severity Reaction Status Date / Time
No Known Allergies Allergy Verified 01/11/24 13:19
Home Medications
aspirin 81 mg tablet,delayed release 81 mg PO DAILY Blood Clot Prevention/Tx 07/05/10
cholecalciferol (vitamin D3) 50 mcg (2,000 unit) capsule (Vitamin D3) 50 mcg PO QPM Supplement 03/29/23
citalopram 20 mg tablet 20 mg PO DAILY Mental Health/Anxiety 03/29/23
metformin 1,000 mg tablet 1,000 mg PO BID Diabetes 03/29/23
repaglinide 2 mg tablet 2 mg PO BID Diabetes 03/29/23
metoprolol succinate 25 mg tablet,extended release 24 hr 25 mg PO DAILY Blood Pressure 08/23/23
atorvastatin 80 mg tablet (Lipitor) 80 mg PO QPM 01/11/24
Review of Systems
-
History Source: Patient
A 12 point ROS was completed and negative except as noted: Yes
Abdomen/GI: Reports Black Stools
Physical Exam
Vital Signs
Vital Signs
Temp Pulse Resp BP Pulse Ox
97.4 F 120 20 169/67 94
01/11/24 15:58 01/11/24 15:58 01/11/24 15:58 01/11/24 15:58 01/11/24 15:58
Physical Exam
General: Well Nourished and No Apparent Distress
HEENT: Anicteric and Moist mucous membranes
Respiratory: Clear and Non Labored Respirations; No Wheezes
Cardiac: S1/S2, Regular Rhythm and Tachycardia
Breast: Deferred by me
GI: Soft, Non Tender and Non Distended
Genito-urinary: Deferred by me
Musculoskeletal: No Edema
Neuro: Awake, Alert, Oriented and AO x 3
Psych: Calm
Laboratory Results
-
01/11/24 14:10
01/11/24 14:10
Laboratory Results
Total Bilirubin 0.5 mg/dl (0.2-1.3) 01/11/24 14:10
AST 27 U/L (14-36) 01/11/24 14:10
ALT 22 U/L (0-35) 01/11/24 14:10
Alkaline Phosphatase 79 U/L (38-126) 01/11/24 14:10
Troponin I < 0.012 ng/ml 01/11/24 14:10
Data Reviewed
-
Lab Data: Labs Reviewed by me and Discussed with Patient
Impression/Plan
-
Acute blood loss anemia secondary to acute GI bleed
Continue with Protonix
Give 2 units of blood and monitor H&H
Consult GI
Clears for now
Check iron panel, B12, folate
History of multivessel disease status post CABG
Hold aspirin for now, restart when okay with GI
History of recent carotid enterectomy
Monitor
Sees vascular outpatient
History of diabetes, currently has hyperglycemia
Insulin given in the ED
Continue with sliding scale, Accu-Cheks. Start Lantus overnight. Hold metformin and repaglinide
IVF
History of Crohn's disease
Ovarian cyst status post oophorectomy 2010
Depression
Pseudohyponatremia
Monitor
History of hypertension
Continue with metoprolol
Lopressor as needed
Hyperlipidemia
DVTppx
SCD's
Full code
I spent a total of 77 minutes with the patient or on the floor. More than 50% of this time involved counseling and coordination of care.
[2024-01-11 16:35] LABS: Iron 38 ug/dl (37-170)
--- NOTE | 2024-01-11 16:36 | CON.GI ---
Addendum entered and electronically signed by Hellen Trejo MD 01/11/24 18:53:
I saw and examined the patient.
The FOOD SERVICE EMPLOYEE or PA's note was reviewed and I agree with the note.
Comment: 73-year-old female with history of multivessel CAD status post CABG June 2023 and carotid endarterectomy, August 2023 currently off Plavix, history of diabetes presenting with black stool in the last couple of days. She reports feeling
fatigued in the last few days and had some dizziness and shortness of breath on exertion, called PCPs office to be seen and was asked to come to the emergency room. In the ER, she was noted to have a hemoglobin of 6.6 and heme positive stool, iron
deficiency indices. Reviewing labs, hemoglobin in the range of 7-11 from March 2023 until August 2023. This was during perioperative.. She denies any GI complaints. No abdominal pain, nausea or vomiting. No heartburn or trouble swallowing. No
constipation, she does have chronic intermittent loose stool. No NSAID use. No previous history of GI bleeding. No previous endoscopy, colonoscopy in [address] Treviño unremarkable, prior to that had adenomatous polyps.
History of elevated LFTs in 2011 with underlying workup negative.
-Melena with iron deficiency anemia, hemodynamically stable
Rule out gastric/duodenal ulcer, esophagitis, angiectasia versus others.
Currently on clear liquid diet, n.p.o. past midnight
Continue Protonix drip
Monitor H&H and transfuse as needed to hemoglobin 8.0
For upper endoscopy tomorrow, if negative further workup with colonoscopy based on symptoms/clinical picture
Mild leukocytosis noted without any fevers.
Original Note:
Consultation
-
Date/Time Consultation Requested: 01/11/24 1606
Date/Time Consultation Performed: 01/11/24 1645
Requesting Provider: Dr Piper
Performing Provider: Dr. Nichols / Leann Juares PA-C
Reason for Consultation: melena, anemia
Medical History
Chief Complaint / HPI
Chief Complaint: dizziness, black stools
History of Present Illness:
Reina is a 73 year old female with a past medical history of DM, hyperlipidemia, HTN, CAD (s/p CABG 06/2023), carotid stenosis (s/p carotid endarterectomy 08/2023), and colon polyps who presented to the hospital with complaints of dizziness, fatigue
for the past 4 days with black stools. She does note diarrhea, but states this is normal for her. She denies any abdominal pain. Has had some mild nausea. No vomiting. She has no history of reflux or heartburn. She takes aspirin 81mg but denies any
other anticoagulation. She was previously on Plavix, but states this was stopped in July following her CABG. She denies any NSAID use. She does not smoke or drink alcohol. She denies any prior history of GI bleeding or anemia. Labs in the ER
revealed a severe anemia with hemoglobin 6.6, normal MCV 83.3, Platelets 298, glucose 344, Na 132, K 4.8, Cl 103, CO2 18, BUN 25 creatinine 0.7, serum iron 38, TIBC 425, iron percent sat 8, ferritin, B12 and folate (results pending). She is
currently being transfused 1 unit PRBCs. She has remained hemodynamically stable. Denies any chest pain or shortness of breath. Grossly heme positive stool noted in ER.
She is known to our GI practice, was previously a patient of Dr. Treviño. Her last colonoscopy was November 2018. She does have a history of adenomatous polyps and is due this year for repeat surveillance surveillance colonoscopy. She has never had an
endoscopy.
Past Medical History
Past Medical History: CAD, HTN, Hypercholesterolemia, NIDDM and Other (colon polyps)
Past Surgical History: Other (CABG, carotid endarterectomy)
Social History
Tobacco: Former Smoker (quit 10 years ago)
Alcohol: None
Drug: None
Family History
Family History: Other (family history of colon cancer (sister, age 62))
Allergies / Home Medications
Allergy/AdvReac Type Severity Reaction Status Date / Time
No Known Allergies Allergy Verified 01/11/24 13:19
�Medication �Instructions �Recorded
aspirin 81 mg tablet,delayed 81 mg PO DAILY Blood Clot 07/05/10
release Prevention/Tx
cholecalciferol (vitamin D3) 50 50 mcg PO QPM Supplement 03/29/23
mcg (2,000 unit) capsule (Vitamin
D3)
citalopram 20 mg tablet 20 mg PO DAILY Mental 03/29/23
Health/Anxiety
metformin 1,000 mg tablet 1,000 mg PO BID Diabetes 03/29/23
repaglinide 2 mg tablet 2 mg PO BID Diabetes 03/29/23
metoprolol succinate 25 mg 25 mg PO DAILY Blood Pressure 08/23/23
tablet,extended release 24 hr
atorvastatin 80 mg tablet (Lipitor) 80 mg PO QPM 01/11/24
Review of Systems
-
History Source: Patient
All other systems: A 12 pt ROS was Negative except as stated above in HPI
Vital Signs
Temp Pulse Resp BP Pulse Ox
97.6 F 121 21 162/76 100
01/11/24 16:15 01/11/24 16:15 01/11/24 16:15 01/11/24 16:15 01/11/24 16:15
Physical Exam
Exam
General: Well Developed, Well Nourished and No Apparent Distress
Respiratory: Clear
Cardiac: Regular Rhythm
GI: Soft, Non Tender, Non Distended and Normal Bowel Sounds
Rectal: Other (scant black stool, grossly heme positive per ER rectal exam)
Skin: Warm and Dry
Neuro: AO x 3
Psych: Calm
Results
WBC 13.9 10^3/uL (4.8-10.8) H 01/11/24 14:10
Hgb 6.6 g/dL (12.0-16.0) L* 01/11/24 14:10
Hct 20.5 % (37.0-47.0) L* 01/11/24 14:10
MCV 83.3 fL (81.0-99.0) 01/11/24 14:10
Plt Count 298 10^3/uL (130-400) 01/11/24 14:10
Absolute Neuts (auto) 10.7 10^3/uL (1.4-6.5) H 01/11/24 14:10
Sodium 132 mmol/L (135-145) L 01/11/24 14:10
Potassium 4.8 mmol/L (3.5-5.1) 01/11/24 14:10
Chloride 103 mmol/L (98-107) 01/11/24 14:10
Carbon Dioxide 18 mmol/L (22-30) L 01/11/24 14:10
BUN 25 mg/dl (7-17) H 01/11/24 14:10
Creatinine 0.7 mg/dL (0.6-1.0) 01/11/24 14:10
Calcium 9.2 mg/dl (8.4-10.2) 01/11/24 14:10
Total Bilirubin 0.5 mg/dl (0.2-1.3) 01/11/24 14:10
AST 27 U/L (14-36) 01/11/24 14:10
ALT 22 U/L (0-35) 01/11/24 14:10
Alkaline Phosphatase 79 U/L (38-126) 01/11/24 14:10
Diagnostic Image Results:
Prior GI Procedures:
EGD: never
Colonoscopy:
11/21/2018 Dr Treviño:
Diverticulosis in the sigmoid colon, in the proximal
sigmoid colon, in the mid sigmoid colon and in the
distal sigmoid colon.
- The examination was otherwise normal.
- No specimens collected.
- Repeat colonoscopy in 5 years for surveillance.
10/23/2009 Dr Foote:
Erythematous and eroded mucosa terminal ileum. This
was biopsied.
- One 12 mm polyp in the proximal ascending colon.
Resected and retrieved. This was biopsied.
- One 3 mm polyp in the proximal descending colon.
- Diverticulosis sigmoid colon.
- Tortuous colon.
Bx: terminal ileum biopsy showed chronic inflammation with villous architectural distortion; no granulomas, uleration or active inflammation
polyp was a sessile serrated adenoma
Assessment / Plan
-
Reina is a 73 year old female with a past medical history of DM, hyperlipidemia, HTN, CAD (s/p CABG 06/2023), carotid stenosis (s/p carotid endarterectomy 08/2023), and colon polyps who presented to the hospital with complaints of dizziness, fatigue
for the past 4 days with black stools. She does note diarrhea, but states this is normal for her. She denies any abdominal pain. Has had some mild nausea. No vomiting. She has no history of reflux or heartburn. She takes aspirin 81mg but denies any
other anticoagulation. She was previously on Plavix, but states this was stopped in July following her CABG. She denies any NSAID use. She does not smoke or drink alcohol. She denies any prior history of GI bleeding or anemia. Labs in the ER
revealed a severe anemia with hemoglobin 6.6, normal MCV 83.3, Platelets 298, glucose 344, Na 132, K 4.8, Cl 103, CO2 18, BUN 25 creatinine 0.7, serum iron 38, TIBC 425, iron percent sat 8, ferritin, B12 and folate (results pending). She is
currently being transfused 1 unit PRBCs, with a second unit ordered, on IV PPI. She has remained hemodynamically stable. Denies any chest pain or shortness of breath. Grossly heme positive stool noted in ER.
IMPRESSION / PLAN:
Acute blood loss anemia, concern for GI bleed
- Hgb 6.6, s/p 1 unit PRBCs in the ER with a second ordered
- trend hemoglobin, transfuse if it falls below 7
- continue PPI (pantoprazole)
- No need to hold aspirin 81mg from a GI standpoint
- NPO after midnight
- plan for endoscopy in AM
H/o sessile serrated adenoma
- due for surveillance colonoscopy - can likely be done outpatient - timing of colonoscopy to be determined by GI physician
Other medical issues managed as per hospitalist.
We will follow.
-
-
Thank you for consultation and allowing me to participate in the patient's care. Please call the container coordinator GI physician during the after hours with any questions or concerns.
[2024-01-11 16:44] LABS: Percent Saturation 8 % (20-50); Total Iron Binding Capacity 425 ug/dl (265-497)
--- NOTE | 2024-01-11 17:00 | PTCARENOTE ---
Addendum entered by Junaid Riddle RN 01/11/24 20:00:
Patient reports that , son and sister call all receive updates on her. Numbers placed in admission documentation for emergency contacts/caregivers.
Original Note:
Received patient by stretcher from ED. Patient reports no more dizziness. Able to ambulate from stretcher to bed steadily. Protonix gtt infusing, IV fluids started. BP elevated, HR NST. Reviewing meds. Patient with no complaints, reports having
diarrhea which is not uncommon for her to have frequently. Reports dark stools. Call jay in patients hand. Will closely monitor.
[2024-01-11 17:29] LABS: Glucose - Point of Care 268 mg/dl (70-99)
[2024-01-11 17:53] LABS: Vitamin B12 595 pg/ml (239-931)
[2024-01-11] MEDS: NOVOLOG FLEXPEN-LOW RESISTANCE 3 UNITS SC (19:17)
--- NOTE | 2024-01-11 21:12 | PTCARENOTE ---
PRBC unit ending in [id number] sent back to blood bank due to leak at puncture site.
--- NOTE | 2024-01-11 21:17 | W.PN.UPDATE ---
Update Note
Progress Note Update
Blood bank requested new order for 1 unit of blood to replace original unit ordered (bag had leak and was unable to be transfused).
[2024-01-11 22:36] LABS: Glucose - Point of Care 203 mg/dl (70-99)
[2024-01-12] VITALS (18 sets, daily range): BP systolic 106–155; BP diastolic 43–95; BMI 27.1
[2024-01-12] MEDS: LANTUS SC (00:25)
[2024-01-12] MEDS: TYLENOL 650 MG PO (01:57)
[2024-01-12] MEDS: PROTONIX 100 IV ×3 (01:57→22:40)
[2024-01-12 03:27] LABS: % Basophils 0.4 % (0-2); % Eosinophils 1.3 % (0-6); % Immature Granulocytes 0.7 % (0-0.5); % Lymphocytes 33.7 % (20.5-51.1); % Monocytes 10.6 % (1.7-9.3); % Neutrophils 53.3 % (42.2-75.2); Absolute Eosinophils 0.1 10^3/uL (0-0.7); Absolute Immature Granulocytes 0.1 10^3/uL (0-0.05); Absolute Lymphocytes 2.9 10^3/uL (1.2-3.4); Absolute Monocytes 0.9 10^3/uL (0.1-0.6); Absolute Neutrophils 4.6 10^3/uL (1.4-6.5); Hematocrit 23.9 % (37.0-47.0); Hemoglobin 8.1 g/dL (12.0-16.0); Mean Corp Hgb Conc. 33.9 g/dL (33.0-37.0); Mean Corpuscular Volume 82.7 fL (81.0-99.0); Mean Platelet Volume 10.4 fL (7.4-10.4); Nucleated Red Blood Cells % 0 %; Platelet Count 225 10^3/uL (130-400); Red Blood Cell Count 2.89 10^6/uL (4.20-5.40); Red Cell Dist. Width 15.9 % (11.5-14.5); White Blood Cell Count 8.6 10^3/uL (4.8-10.8)
[2024-01-12 03:40] LABS: Blood Urea Nitrogen 17 mg/dl (7-17); Calcium 8.8 mg/dl (8.4-10.2); Carbon Dioxide 20 mmol/L (22-30); Chloride 109 mmol/L (98-107); Estimated Creatinine Clearance 76 ml/min; Glucose 163 mg/dl (70-99); Potassium 3.9 mmol/L (3.5-5.1); Sodium 137 mmol/L (135-145); eGFR > 60.00
[2024-01-12 08:17] LABS: Glucose - Point of Care 228 mg/dl (70-99)
[2024-01-12] MEDS: CELEXA 20 MG PO (08:46)
[2024-01-12] MEDS: TOPROL XL 25 MG PO (08:46)
[2024-01-12] MEDS: NSS 1000 IV ×2 (08:46→22:41)
[2024-01-12] MEDS: NOVOLOG FLEXPEN-LOW RESISTANCE 1 UNITS SC (08:47)
[2024-01-12 08:58] LABS: Hematocrit 25.7 % (37.0-47.0); Hemoglobin 8.6 g/dL (12.0-16.0)
[2024-01-12 09:45] LABS: Glycohemoglobin (HgbA1c) 7.5 % (4.0-5.6)
--- NOTE | 2024-01-12 11:51 | W.PN.HOSP.TC ---
Today's Communication/Plan
-
Monitor vital signs
see plan
Continue to monitor hemoglobin
EGD today
Restart aspirin when okay with gastroenterology
Assessment / Plan
Assessment / Plan
General: Well Nourished and No Apparent Distress
HEENT: Anicteric and Moist mucous membranes
Respiratory: Clear and Non Labored Respirations; No Wheezes
Cardiac: S1/S2, Regular Rhythm and Tachycardia
Breast: Deferred by me
GI: Soft, Non Tender and Non Distended
Musculoskeletal: No Edema
Neuro: Awake, Alert, Oriented and AO x 3
Psych: Calm
Acute blood loss anemia secondary to acute GI bleed
Continue with Protonix
Status post blood transfusion, hemoglobin 8.6 today
Iron deficiency anemia, start IV iron
GI following, plan for EGD today
NPO
History of multivessel disease status post CABG
Hold aspirin for now, restart when okay with GI
History of recent carotid enterectomy
Monitor
Sees vascular outpatient
History of diabetes, currently has hyperglycemia
Insulin given in the ED
Continue with sliding scale, Accu-Cheks. Started Lantus. Hold metformin and repaglinide for now
IVF
A1c 7.5
History of Crohn's disease
Ovarian cyst status post oophorectomy 2010
Depression
Pseudohyponatremia
Monitor
History of hypertension
Continue with metoprolol
Lopressor as needed
Hyperlipidemia
DVTppx
SCD's
Full code
Anticipated Discharge: 24 - 48 hours
Subjective/Interval History
-
Date of Service: January 12, 2024
Denies abdominal pain
Objective Data
-
Labs:
Laboratory Results
01/11/24 01/12/24 01/12/24
01:00 03:09 03:09
WBC 8.6
Hgb Pending Cancelled 8.1 L D
Hct Pending Cancelled
Plt Count
Sodium
Potassium
Chloride
Carbon Dioxide
BUN
Creatinine
Glucose
Calcium
01/12/24 01/12/24
03:09 08:40
WBC
Hgb 8.6 L
Hct 23.9 L 25.7 L
Plt Count 225 D
Sodium 137
Potassium 3.9
Chloride 109 H
Carbon Dioxide 20 L
BUN 17
Creatinine 0.6
Glucose 163 H
Calcium 8.8
Vital Signs:
Vital Signs
Temp Pulse Resp BP Pulse Ox
98.4 F 92 15 134/58 97
01/12/24 03:30 01/12/24 11:15 01/12/24 11:15 01/12/24 10:00 01/12/24 10:30
I&O
01/11/24 01/12/24 01/13/24
06:59 06:59 06:59
Intake Total 1460 / 1460
Balance 1460 / 1460
--- NOTE | 2024-01-12 13:20 | PTCARENOTE ---
Off unit at this time for endoscopy.
[2024-01-12] MEDS: NOVOLOG FLEXPEN-LOW RESISTANCE 3 UNITS SC (13:59)
[2024-01-12] MEDS: FERRLECIT 110 MG IV (14:00)
[2024-01-12 14:10] LABS: Glucose - Point of Care 280 mg/dl (70-99)
--- NOTE | 2024-01-12 16:45 | CM ---
automotive manager reviewed patient's chart and met with patient and patient lives with her spouse in a 2 story home with 3 steps to enter, patient is independent with adl's and ambulation, no dme, home when stable, no needs.
PCP: Dr. Quiroz
Pharmacy [facility]
[2024-01-12 17:52] LABS: Glucose - Point of Care 327 mg/dl (70-99)
[2024-01-12] MEDS: NOVOLOG FLEXPEN-LOW RESISTANCE 4 UNITS SC (18:33)
[2024-01-12] MEDS: ASPIR LOW (ENTERIC COATED) 81 MG PO (18:34)
--- NOTE | 2024-01-12 19:00 | PTCARENOTE ---
Cannot verify accuracy of captured vital signs prior to 1900.
[2024-01-12 21:43] LABS: Glucose - Point of Care 208 mg/dl (70-99)
[2024-01-12] MEDS: LANTUS 0.05 UNITS SC (22:40)
[2024-01-13] VITALS (14 sets, daily range): BP systolic 93–158; BP diastolic 38–107; BMI 27.4
--- NOTE | 2024-01-13 05:18 | PTCARENOTE ---
Assumed care of patient at 1900. Nursing assessment as documented. Patient denies abdominal pain/nausea at this time. No current reports of melena. Patient expressed concerns of colonoscopy and being discharged, support and education provided. IVF
and protonix gtt remain infusing, see MAR. CHAVEZ, call jay within reach, care ongoing.
[2024-01-13 05:37] LABS: % Basophils 0.6 % (0-2); % Eosinophils 2.6 % (0-6); % Immature Granulocytes 0.6 % (0-0.5); % Lymphocytes 30.1 % (20.5-51.1); % Monocytes 8.2 % (1.7-9.3); % Neutrophils 57.9 % (42.2-75.2); Absolute Basophils 0.1 10^3/uL (0-0.2); Absolute Eosinophils 0.2 10^3/uL (0-0.7); Absolute Immature Granulocytes 0.1 10^3/uL (0-0.05); Absolute Lymphocytes 2.6 10^3/uL (1.2-3.4); Absolute Monocytes 0.7 10^3/uL (0.1-0.6); Hematocrit 23.5 % (37.0-47.0); Hemoglobin 7.8 g/dL (12.0-16.0); Mean Corp Hgb Conc. 33.2 g/dL (33.0-37.0); Mean Corpuscular Hgb 28.7 pg (27.0-31.0); Mean Corpuscular Volume 86.4 fL (81.0-99.0); Mean Platelet Volume 10.5 fL (7.4-10.4); Nucleated Red Blood Cells % 0 %; Platelet Count 223 10^3/uL (130-400); Red Blood Cell Count 2.72 10^6/uL (4.20-5.40); Red Cell Dist. Width 15.9 % (11.5-14.5); White Blood Cell Count 8.6 10^3/uL (4.8-10.8)
[2024-01-13 06:01] LABS: Blood Urea Nitrogen 17 mg/dl (7-17); Calcium 8.7 mg/dl (8.4-10.2); Carbon Dioxide 23 mmol/L (22-30); Chloride 109 mmol/L (98-107); Estimated Creatinine Clearance 65 ml/min; Glucose 206 mg/dl (70-99); Potassium 4.1 mmol/L (3.5-5.1); Sodium 136 mmol/L (135-145); eGFR > 60.00
--- NOTE | 2024-01-13 06:50 | W.PN.HOSP.TC ---
Today's Communication/Plan
-
f/w GI recommendations
c/w IV Iron
CBC in AM
Increase Lantus
Assessment / Plan
Assessment / Plan
Physical exam:
General: Well Nourished and No Apparent Distress
HEENT: Anicteric and Moist mucous membranes
Respiratory: Clear and Non Labored Respirations; No Wheezes
Cardiac: S1/S2, Regular Rhythm and Tachycardia
GI: Soft, Non Tender and Non Distended
Musculoskeletal: No Edema
Neuro: Awake, Alert, Oriented and AO x 3
Psych: Calm
#Acute blood loss anemia secondary to acute GI bleed
No abd pain
No active bleeding
Continue with Protonix
Status post blood transfusion, hemoglobin 7-8
Iron deficiency anemia, started IV iron
EGD no abnormalities.
Plan for colonoscopy & Endoscopy
Appreciate GI help
#History of multivessel disease status post CABG
Held aspirin for now, restart when okay with GI
#History of recent carotid enterectomy
Monitor
Sees vascular outpatient
#History of diabetes, currently has hyperglycemia, uncontrolled
Insulin given in the ED
Continue with sliding scale, Accu-Cheks. Started Lantus, increase dose . Hold metformin and repaglinide for now
A1c 7.5
#History of Crohn's disease
#Ovarian cyst status post oophorectomy 2010
# Major depressive disorder, recurrent, mild / Polyneuropathy
#Pseudohyponatremia
Resolved.
#History of hypertension
Continue with metoprolol
Lopressor as needed
Hyperlipidemia
DVTppx
SCD's
Full code
Total time spent to see the patient, examine the patient on the floor, review data and lab results, discuss treatment plan with patient, nursing staff around 57 minutes.
Anticipated Discharge: 24 - 48 hours
Subjective/Interval History
-
Date of Service: January 13, 2024
No abd pain
No nausea + black stool, asking about colonoscopy
Objective Data
-
Labs:
Laboratory Results
01/13/24
05:01
WBC 8.6
Hgb 7.8 L
Hct 23.5 L
Plt Count 223
Sodium 136
Potassium 4.1
Chloride 109 H
Carbon Dioxide 23
BUN 17
Creatinine 0.7
Glucose 206 H
Calcium 8.7
Vital Signs:
Vital Signs
Temp Pulse Resp BP Pulse Ox
98.2 F 82 17 116/48 94
01/13/24 04:41 01/13/24 04:00 01/13/24 04:00 01/13/24 04:00 01/13/24 04:00
I&O
01/11/24 01/12/24 01/13/24
06:59 06:59 06:59
Intake Total 1460 / 1460 960 / 960
Balance 1460 / 1460 960 / 960
[2024-01-13 08:35] LABS: Glucose - Point of Care 302 mg/dl (70-99)
[2024-01-13] MEDS: PROTONIX 100 IV (09:14)
[2024-01-13] MEDS: TOPROL XL 25 MG PO (09:18)
[2024-01-13] MEDS: CELEXA 20 MG PO (09:18)
[2024-01-13] MEDS: ASPIR LOW (ENTERIC COATED) 81 MG PO (09:18)
[2024-01-13] MEDS: NOVOLOG FLEXPEN-LOW RESISTANCE 4 UNITS SC (09:20)
--- NOTE | 2024-01-13 09:43 | W.PN.GI.CBS2 ---
Today's Communication / Plan
-
Colonoscopy on Monday
DC ppi Gtt
Assessment / Plan
-
Reina is a 73 year old female with a past medical history of DM, hyperlipidemia, HTN, CAD (s/p CABG 06/2023), carotid stenosis (s/p carotid endarterectomy 08/2023), and colon polyps who presented to the hospital with complaints of dizziness, fatigue
for the past 4 days with black stools. She does note diarrhea, but states this is normal for her. She denies any abdominal pain. Has had some mild nausea. No vomiting. She has no history of reflux or heartburn. She takes aspirin 81mg but denies any
other anticoagulation. She was previously on Plavix, but states this was stopped in July following her CABG. She denies any NSAID use. She does not smoke or drink alcohol. She denies any prior history of GI bleeding or anemia. Labs in the ER
revealed a severe anemia with hemoglobin 6.6, normal MCV 83.3, Platelets 298, glucose 344, Na 132, K 4.8, Cl 103, CO2 18, BUN 25 creatinine 0.7, serum iron 38, TIBC 425, iron percent sat 8, ferritin, B12 and folate (results pending). She is
currently being transfused 1 unit PRBCs, with a second unit ordered, on IV PPI. She has remained hemodynamically stable. Denies any chest pain or shortness of breath. Grossly heme positive stool noted in ER.
IMPRESSION / PLAN:
Melena with iron deficiency anemia most likely from acute blood loss anemia and also likely has chronic blood loss.
Status post EGD 01/12/2024 was normal
will schedule for colonoscopy on Monday she does have prior history of SSA and her last colonoscopy was in 2019 and if that is also unremarkable will need capsule endoscopy as outpatient to rule out small bowel angioectasias
History of CAD,status post CABG and CEA continue aspirin
Can DC Protonix drip
Monitor HB
Continue Iv Iron
Subjective
Subjective
Date of Service: January 13, 2024
Last episode of melena was yesterday none since then hemoglobin today 7.8 down from 8.6 yesterday. She is status post 2 units of packed red blood cells on 01/11/2024
Objective
Data Reviewed
Laboratory Data:
Laboratory Results
01/13/24 05:01
01/13/24 05:01
Laboratory Results
Total Bilirubin 0.5 mg/dl (0.2-1.3) 01/11/24 14:10
AST 27 U/L (14-36) 01/11/24 14:10
ALT 22 U/L (0-35) 01/11/24 14:10
Alkaline Phosphatase 79 U/L (38-126) 01/11/24 14:10
Vital Signs and I&O:
Vital Signs
Temp Pulse Resp BP Pulse Ox
98.2 F 100 18 138/75 97
01/13/24 04:41 01/13/24 09:01 01/13/24 09:01 01/13/24 08:12 01/13/24 09:01
I&O
01/12/24 01/13/24 01/14/24
06:59 06:59 06:59
Intake Total 1460 / 1460 960 / 960
Balance 1460 / 1460 960 / 960
Physical Exam
Physical Exam
Cardiology: Normal Sinus Rhythm
Pulmonary: Clear
GI: Soft, Non Distended, Non Tender and Normal Bowel Sounds
[2024-01-13] MEDS: LANTUS 0.05 UNITS SC (11:06)
[2024-01-13] MEDS: NOVOLOG FLEXPEN-LOW RESISTANCE 5 UNITS SC (13:02)
[2024-01-13 13:08] LABS: Glucose - Point of Care 358 mg/dl (70-99)
[2024-01-13] MEDS: FERRLECIT 110 MG IV (14:47)
[2024-01-13] MEDS: FLUSH (NSS) 2 FLUSH IV (14:49)
--- NOTE | 2024-01-13 16:00 | PTCARENOTE ---
Patient tolerating regular diet. Denies any abdominal pain or discomfort. No BM today, using commode to void independently. Patient to have clear liquids for breakfast tomorrow and prep for colonoscopy at 1300. Vital signs stable.
[2024-01-13 16:45] LABS: Glucose - Point of Care 288 mg/dl (70-99)
[2024-01-13] MEDS: NOVOLOG FLEXPEN-LOW RESISTANCE 3 UNITS SC (17:04)
[2024-01-13 21:34] LABS: Glucose - Point of Care 199 mg/dl (70-99)
[2024-01-13] MEDS: LANTUS 0.1 UNITS SC (21:47)
[2024-01-14] VITALS (15 sets, daily range): BP systolic 79–159; BP diastolic 50–97; BMI 26.5
[2024-01-14 05:38] LABS: Hematocrit 23.1 % (37.0-47.0); Hemoglobin 7.8 g/dL (12.0-16.0); Mean Corp Hgb Conc. 33.8 g/dL (33.0-37.0); Mean Corpuscular Hgb 29.4 pg (27.0-31.0); Mean Corpuscular Volume 87.2 fL (81.0-99.0); Mean Platelet Volume 10.7 fL (7.4-10.4); Platelet Count 205 10^3/uL (130-400); Red Blood Cell Count 2.65 10^6/uL (4.20-5.40); White Blood Cell Count 8.5 10^3/uL (4.8-10.8)
--- NOTE | 2024-01-14 06:53 | W.PN.HOSP.TC ---
Today's Communication/Plan
-
[place] for bowel prep today
Assessment / Plan
Assessment / Plan
Physical exam:
General: Well Nourished and No Apparent Distress
HEENT: Anicteric and Moist mucous membranes
Respiratory: Clear and Non Labored Respirations; No Wheezes
Cardiac: S1/S2, Regular Rhythm and Tachycardia
GI: Soft, Non Tender and Non Distended
Musculoskeletal: No Edema
Neuro: Awake, Alert, Oriented and AO x 3
Psych: Calm
#Acute blood loss anemia secondary to acute GI bleed
No abd pain
No active bleeding
Continue with Protonix
Status post blood transfusion, hemoglobin 7-8 , stable
Iron deficiency anemia, started IV iron
Status post EGD 01/12/2024 was normal
Plan for colonoscopy Sunday 01/14
Appreciate GI help
#History of multivessel disease status post CABG
Held aspirin for now, restart when okay with GI
#History of recent carotid enterectomy
Monitor
Sees vascular outpatient
#History of diabetes, currently has hyperglycemia, uncontrolled
Insulin given in the ED
Continue with sliding scale, Accu-Cheks. Started Lantus, increase dose . Hold metformin and repaglinide for now
A1c 7.5
#History of Crohn's disease
#Ovarian cyst status post oophorectomy 2010
# Major depressive disorder, recurrent, mild / Polyneuropathy
#Pseudohyponatremia
Resolved.
#History of hypertension
Continue with metoprolol
Lopressor as needed
Hyperlipidemia
DVTppx
SCD's
Full code
Total time spent to see the patient, examine the patient on the floor, review data and lab results, discuss treatment plan with patient, nursing staff around 57 minutes.
Anticipated Discharge: 24 - 48 hours
Subjective/Interval History
-
Date of Service: January 14, 2024
No abd pain
No nausea
No black stools over night
Objective Data
-
Labs:
Laboratory Results
01/14/24
05:15
WBC 8.5
Hgb 7.8 L
Hct 23.1 L
Plt Count 205
Vital Signs:
Vital Signs
Temp Pulse Resp BP Pulse Ox
98.5 F 79 16 136/51 95
01/14/24 03:19 01/14/24 04:00 01/14/24 04:00 01/14/24 04:00 01/14/24 04:00
I&O
01/12/24 01/13/24 01/14/24
06:59 06:59 06:59
Intake Total 1460 / 1460 960 / 960 1415 / 1415
Output Total 2180 / 2180
Balance 1460 / 1460 960 / 960 -765 / -765
--- NOTE | 2024-01-14 08:10 | VATNOTE ---
Patient with reported blood infiltrate in right antecubital area from 01/10. Area ecchymotic without swelling or drainage. Patient denied pain to area.
--- NOTE | 2024-01-14 08:53 | W.PN.GI.CBS2 ---
Today's Communication / Plan
-
colonoscopy Monday
prep today
Assessment / Plan
-
Reina is a 73 year old female with a past medical history of DM, hyperlipidemia, HTN, CAD (s/p CABG 06/2023), carotid stenosis (s/p carotid endarterectomy 08/2023), and colon polyps who presented to the hospital with complaints of dizziness, fatigue
for the past 4 days with black stools. She does note diarrhea, but states this is normal for her. She denies any abdominal pain. Has had some mild nausea. No vomiting. She has no history of reflux or heartburn. She takes aspirin 81mg but denies any
other anticoagulation. She was previously on Plavix, but states this was stopped in July following her CABG. She denies any NSAID use. She does not smoke or drink alcohol. She denies any prior history of GI bleeding or anemia. Labs in the ER
revealed a severe anemia with hemoglobin 6.6, normal MCV 83.3, Platelets 298, glucose 344, Na 132, K 4.8, Cl 103, CO2 18, BUN 25 creatinine 0.7, serum iron 38, TIBC 425, iron percent sat 8, ferritin, B12 and folate (results pending). She is
currently being transfused 1 unit PRBCs, with a second unit ordered, on IV PPI. She has remained hemodynamically stable. Denies any chest pain or shortness of breath. Grossly heme positive stool noted in ER.
IMPRESSION / PLAN:
Melena with iron deficiency anemia most likely from acute blood loss anemia and also likely has chronic blood loss.
Status post EGD 01/12/2024 was normal
will schedule for colonoscopy on Monday she does have prior history of SSA and her last colonoscopy was in 2019 and if that is also unremarkable will need capsule endoscopy as outpatient to rule out small bowel angioectasias
History of CAD,status post CABG and CEA continue aspirin
Monitor HB
Continue Iv Iron
Subjective
Subjective
Date of Service: January 14, 2024
No further melena since yesterday, hemoglobin remains stable at 7.8, no abdominal pain
Objective
Data Reviewed
Laboratory Data:
Laboratory Results
01/14/24 05:15
01/13/24 05:01
Laboratory Results
Total Bilirubin 0.5 mg/dl (0.2-1.3) 01/11/24 14:10
AST 27 U/L (14-36) 01/11/24 14:10
ALT 22 U/L (0-35) 01/11/24 14:10
Alkaline Phosphatase 79 U/L (38-126) 01/11/24 14:10
Vital Signs and I&O:
Vital Signs
Temp Pulse Resp BP Pulse Ox
98.2 F 79 15 138/57 94
01/14/24 07:53 01/14/24 06:00 01/14/24 06:00 01/14/24 05:00 01/14/24 06:00
I&O
01/13/24 01/14/24 01/15/24
06:59 06:59 06:59
Intake Total 960 / 960 1415 / 1415
Output Total 2180 / 2180
Balance 960 / 960 -765 / -765
Physical Exam
Physical Exam
Cardiology: Normal Sinus Rhythm
Pulmonary: Clear
GI: Soft, Non Distended, Non Tender and Normal Bowel Sounds
[2024-01-14 09:09] LABS: Glucose - Point of Care 229 mg/dl (70-99)
[2024-01-14] MEDS: CELEXA 20 MG PO (09:12)
[2024-01-14] MEDS: ASPIR LOW (ENTERIC COATED) 81 MG PO (09:12)
[2024-01-14] MEDS: NOVOLOG FLEXPEN-LOW RESISTANCE 2 UNITS SC (09:12)
[2024-01-14] MEDS: TOPROL XL 25 MG PO (09:12)
[2024-01-14] MEDS: NOVOLOG FLEXPEN-LOW RESISTANCE 3 UNITS SC (12:22)
[2024-01-14 12:26] LABS: Glucose - Point of Care 280 mg/dl (70-99)
[2024-01-14] MEDS: NULYTELY SOLUTION 4 LITERS PO (13:25)
--- NOTE | 2024-01-14 13:36 | PTCARENOTE ---
Pt presents as assessed. Aox3. No bowel movements at this time. Started on bowel prep per orders, tolerating well at this time.
[2024-01-14] MEDS: FERRLECIT 110 MG IV (14:02)
[2024-01-14 18:19] LABS: Glucose - Point of Care 190 mg/dl (70-99)
[2024-01-14] MEDS: NOVOLOG FLEXPEN-LOW RESISTANCE 1 UNITS SC (18:20)
[2024-01-14] MEDS: TYLENOL 650 MG PO (19:34)
[2024-01-14 22:39] LABS: Glucose - Point of Care 148 mg/dl (70-99)
[2024-01-14 22:46] LABS: Transferrin 322 mg/dL (200-360)
[2024-01-14] MEDS: DULCOLAX 20 MG PO (22:58)
[2024-01-14] MEDS: LANTUS 0.1 UNITS SC (23:02)
[2024-01-15] VITALS (14 sets, daily range): BP systolic 92–144; BP diastolic 33–117; BMI 26.5
[2024-01-15 06:01] LABS: Hematocrit 24.8 % (37.0-47.0); Hemoglobin 8.2 g/dL (12.0-16.0); Mean Corp Hgb Conc. 33.1 g/dL (33.0-37.0); Mean Corpuscular Hgb 29.6 pg (27.0-31.0); Mean Corpuscular Volume 89.5 fL (81.0-99.0); Mean Platelet Volume 10.6 fL (7.4-10.4); Platelet Count 239 10^3/uL (130-400); Red Blood Cell Count 2.77 10^6/uL (4.20-5.40); Red Cell Dist. Width 16.4 % (11.5-14.5); White Blood Cell Count 7.9 10^3/uL (4.8-10.8)
[2024-01-15 07:06] LABS: Blood Urea Nitrogen 13 mg/dl (7-17); Calcium 8.8 mg/dl (8.4-10.2); Carbon Dioxide 25 mmol/L (22-30); Chloride 107 mmol/L (98-107); Estimated Creatinine Clearance 67 ml/min; Glucose 167 mg/dl (70-99); Potassium 3.7 mmol/L (3.5-5.1); Sodium 136 mmol/L (135-145); eGFR > 60.00
[2024-01-15] MEDS: NOVOLOG FLEXPEN-LOW RESISTANCE 1 UNITS SC (07:34)
[2024-01-15] MEDS: TOPROL XL 25 MG PO (07:34)
[2024-01-15] MEDS: CELEXA 20 MG PO (07:35)
[2024-01-15 07:40] LABS: Glucose - Point of Care 181 mg/dl (70-99)
[2024-01-15 09:30] LABS: Glucose - Point of Care 197 mg/dl (70-99)
[2024-01-15] MEDS: ASPIR LOW (ENTERIC COATED) 81 MG PO (10:34)
--- NOTE | 2024-01-15 11:38 | W.PN.HOSP.TC ---
Addendum entered and electronically signed by Shine Piper MD 01/15/24 14:09:
Time of discharge 38 minutes
Original Note:
Today's Communication/Plan
-
Monitor vital signs
see plan
Done with colonoscopy, if tolerates regular diet then can be discharged
Patient will follow-up with GI outpatient
Assessment / Plan
Assessment / Plan
Physical exam:
General: Well Nourished and No Apparent Distress
HEENT: Anicteric and Moist mucous membranes
Respiratory: Clear and Non Labored Respirations; No Wheezes
Cardiac: S1/S2, Regular Rhythm and Tachycardia
GI: Soft, Non Tender and Non Distended
Musculoskeletal: No Edema
Neuro: Awake, Alert, Oriented and AO x 3
Psych: Calm
#Acute blood loss anemia secondary to acute GI bleed
No abd pain
No active bleeding
Continue with Protonix
Status post blood transfusion, hemoglobin 7-8 , stable
Iron deficiency anemia, started IV iron
Status post EGD 01/12/2024 was normal
colonoscopy Sunday 01/14 with diverticulosis and multiple ulcers that have been biopsied. Patient will follow-up with gastroenterology outpatient. Spoke with GI, okay with being discharged
Appreciate GI help
#History of multivessel disease status post CABG
cw aspirin
#History of recent carotid enterectomy
Monitor
Sees vascular outpatient
#History of diabetes, currently has hyperglycemia, uncontrolled
Insulin given in the ED
Continue with sliding scale, Accu-Cheks. Started Lantus, increase dose . restart metformin and repaglinide
A1c 7.5
#History of Crohn's disease
#Ovarian cyst status post oophorectomy 2010
# Major depressive disorder, recurrent, mild / Polyneuropathy
#Pseudohyponatremia
Resolved.
#History of hypertension
Continue with metoprolol
Lopressor as needed
Hyperlipidemia
DVTppx
SCD's
Full code
Anticipated Discharge: Today
Subjective/Interval History
-
Date of Service: January 15, 2024
denies pain
Objective Data
-
Labs:
Laboratory Results
01/15/24
05:41
WBC 7.9
Hgb 8.2 L
Hct 24.8 L
Plt Count 239
Sodium 136
Potassium 3.7
Chloride 107
Carbon Dioxide 25
BUN 13
Creatinine 0.6
Glucose 167 H
Calcium 8.8
Vital Signs:
Vital Signs
Temp Pulse Resp BP Pulse Ox
97.5 F 77 12 134/117 98
01/15/24 09:45 01/15/24 10:00 01/15/24 10:00 01/15/24 09:45 01/15/24 09:45
I&O
01/14/24 01/15/24 01/16/24
06:59 06:59 06:59
Intake Total 1415 / 1415 960 / 960
Output Total 2180 / 2180
Balance -765 / -765 960 / 960
[2024-01-15 12:09] LABS: Glucose - Point of Care 253 mg/dl (70-99)
[2024-01-15] MEDS: NOVOLOG FLEXPEN-LOW RESISTANCE 3 UNITS SC (12:19)
--- NOTE | 2024-01-15 12:45 | PTCARENOTE ---
Assumed care of patient at beginning of this shift from previous RN. Patient was NPO for colonoscopy. Accu check 181 prior to leaving for GI lab; insulin given as ordered. PACU did accu check post scope at 09:28: 197 but did not treat. Patient
ordered regular diet and called for a breakfast tray on return to room; instructed to call nurse for accu check prior to eating. Patient forgot to call and accu check was done immediately after eating breakfast tray: 253. Reviewed all with Dr Piper
who instructed to give 3 units insulin as per sliding scale coverage.
Patient stated she felt good after eating, just tired. Dr Piper made aware per his request.
--- NOTE | 2024-01-15 13:01 | PTCARENOTE ---
BP 134/117 was captured at 09:45; however patient was on the phone, using that hand and moving her arm. BP recycled 134/81.
[2024-01-15] MEDS: FERRLECIT 110 MG IV (13:47)
--- NOTE | 2024-01-15 14:07 | W.DCSUMMARY ---
Discharge Summary
Discharge Data
Date of Admission: 01/11/24
Date of Discharge: 01/15/24
-
Pending Results: No
Hospital Course
73-year-old female with past medical history of recent carotid enterectomy, multivessel disease status post CABG, diabetes mellitus, processes, ovarian cyst, depression, hypertension came to the hospital with acute blood loss anemia secondary to
acute GI bleed. Patient initially underwent endoscopy which did not show any signs of bleeding. Patient required blood transfusion on this hospitalization. Also required IV iron. Patient underwent colonoscopy which showed diverticulosis along
with multiple ulcers which were biopsied. Gastroenterology instructed patient to follow-up with them outpatient for possible capsule endoscopy. Once patient symptoms continue to improve and her hemoglobin was stable, she was then discharged home
with instructions to follow-up with all her physicians outpatient.
Discharge Plan
-
Patient Disposition: Home (Routine Discharge)
Discharge Diagnosis/Procedures: Iron deficient anemia
Acute blood loss anemia secondary to GI bleed
Diet: As tolerated
Activity: As tolerated
Driving Restrictions: As prior to admission
Blood Work: CBC next week with primary care provider
Activity Restrictions/Additional Instructions:
No ibuprofen, naproxen, or other non-steroidal
anti-inflammatory drugs.
Referrals:
Tasia Nichols MD [Active] - (call GI office to arrange for capsule endoscopy then follow up visit after completed )
Alysia Quiroz DO [Family Provider] - in less than 1 week
Prescriptions:
New
ferrous sulfate 325 mg (65 mg iron) tablet
325 mg PO DAILY Qty: 30 0RF
pantoprazole [Protonix] 40 mg tablet,delayed release (DR/EC)
40 mg PO DAILY Qty: 30 0RF
Continued
aspirin 81 MG tablet,delayed release (DR/EC)
81 mg PO DAILY
repaglinide 2 mg Tablet
2 mg PO BID
citalopram 20 mg Tablet
20 mg PO DAILY
metformin 1,000 mg Tablet
1,000 mg PO BID
cholecalciferol (vitamin D3) [Vitamin D3] 50 mcg (2,000 unit) Capsule
50 mcg PO QPM
metoprolol succinate 25 mg Tablet Extended Release 24 Hr
25 mg PO DAILY
atorvastatin [Lipitor] 80 mg tablet
80 mg PO QPM
Discharge Orders:
Discharge Patient (As Directed); Ordered 01/15/24
Ordered By: Shine Piper
Discharge Date and Time
Discharge Date/Time: 01/15/24 16:10
Print Language: MALAY
--- NOTE | 2024-01-15 17:03 | CM ---
Patient with Dx Acute blood loss anemia secondary to acute GI bleed, hyperglycemia.
Spoke with patient who was preparing for d/c. The patient says she feels ready to go home today. Her will provide transport home.
No CM d/c needs identified.
Plan home today.
== END 2024-01-15 16:10 | disposition home or self-care (01) | DRG 378 ==
LOC: IMU 16:02
PROVIDERS: Emergency Medicine; Internal Medicine; Internal Medicine Gastroenterology; Physician Assistant; ADMITTING PHYSICIAN Internal Medicine; CONSULT PHYSICIAN Internal Medicine Gastroenterology; EMERGENCY PHYSICIAN Student in an Organized Health Care Education/Training Program; FAMILY PHYSICIAN Family Medicine
PROC: 30233N1 Transfusion of Nonautologous Red Blood Cells into Peripheral Vein, Percutaneous Approach (ICD-10-PCS; 2024-01-11)
PROC: 0DJ08ZZ Inspection of Upper Intestinal Tract, Via Natural or Artificial Opening Endoscopic (ICD-10-PCS; 2024-01-12)
PROC: 0DBB8ZX Excision of Ileum, Via Natural or Artificial Opening Endoscopic, Diagnostic (ICD-10-PCS; 2024-01-15)
DX: K57.31 Diverticulosis of large intestine without perforation or abscess with bleeding (principal); D62 Acute posthemorrhagic anemia; K63.3 Ulcer of intestine; K50.90 Crohn's disease, unspecified, without complications; I25.10 Atherosclerotic heart disease of native coronary artery without angina pectoris; E11.65 Type 2 diabetes mellitus with hyperglycemia; Z79.82 Long term (current) use of aspirin; Z79.84 Long term (current) use of oral hypoglycemic drugs; Z95.1 Presence of aortocoronary bypass graft; Z87.891 Personal history of nicotine dependence
CPT/HCPCS: 88305; 80048; 80053; 81003; 82010; 82607; 82728; 82746; 82805; 82962; 83036; 83540; 83550; 84466; 84484; 85014; 85018; 85025; 85027; 86850; 86900; 86901; 86920; 93005; 96361; 96372; 96374; 99285; J2916; P9016

== ENCOUNTER → 2024-04-16 09:23 | Outpatient (REF) | payer MEDICARE, SELFPAY | LOC: RAD 09:23 | PROVIDERS: ATTENDING PHYSICIAN Surgery Vascular Surgery; FAMILY PHYSICIAN Family Medicine | DX: I65.23 Occlusion and stenosis of bilateral carotid arteries (principal) | CPT/HCPCS: 93880 ==

== ENCOUNTER → 2024-05-01 13:11 | Outpatient (REF) | payer MEDICARE, SELFPAY | LOC: RAD 13:11 | PROVIDERS: ATTENDING PHYSICIAN Physician Assistant; FAMILY PHYSICIAN Family Medicine | DX: I73.9 Peripheral vascular disease, unspecified (principal) | CPT/HCPCS: 93922; 93925 ==

== ENCOUNTER → 2024-05-07 08:28 | Outpatient (REF) | payer MEDICARE, SELFPAY | LOC: HWRAD 08:28 | PROVIDERS: ATTENDING PHYSICIAN Physician Assistant; FAMILY PHYSICIAN Family Medicine | DX: I65.23 Occlusion and stenosis of bilateral carotid arteries (principal) | CPT/HCPCS: 70496; 70498; Q9967 ==

== ENCOUNTER 2024-07-17 06:20 | Inpatient (IN) | payer MEDICARE, SELFPAY ==
[2024-07-15 09:18] VITALS: BMI 26.8
[2024-07-15 09:42] LABS: % Basophils 0.7 % (0-2); % Eosinophils 1.6 % (0-6); % Immature Granulocytes 0.4 % (0-0.5); % Lymphocytes 26.8 % (20.5-51.1); % Monocytes 9.1 % (1.7-9.3); % Neutrophils 61.4 % (42.2-75.2); Absolute Basophils 0.1 10^3/uL (0-0.2); Absolute Eosinophils 0.1 10^3/uL (0-0.7); Absolute Lymphocytes 2.3 10^3/uL (1.2-3.4); Absolute Monocytes 0.8 10^3/uL (0.1-0.6); Absolute Neutrophils 5.2 10^3/uL (1.4-6.5); Hematocrit 33.5 % (37.0-47.0); Hemoglobin 10.3 g/dL (12.0-16.0); Mean Corp Hgb Conc. 30.7 g/dL (33.0-37.0); Mean Corpuscular Hgb 25.5 pg (27.0-31.0); Mean Corpuscular Volume 82.9 fL (81.0-99.0); Mean Platelet Volume 11.3 fL (7.4-10.4); Nucleated Red Blood Cells % 0 %; Platelet Count 241 10^3/uL (130-400); Red Blood Cell Count 4.04 10^6/uL (4.20-5.40); Red Cell Dist. Width 15.4 % (11.5-14.5); White Blood Cell Count 8.5 10^3/uL (4.8-10.8)
[2024-07-15 09:58] LABS: INR 0.99; PT 13.3 Sec (11.4-14.6)
[2024-07-15 09:59] LABS: APTT 32.1 Sec (23.4-35.0)
[2024-07-15 10:05] LABS: Blood Urea Nitrogen 16 mg/dl (7-17); Calcium 9.6 mg/dl (8.4-10.2); Carbon Dioxide 26 mmol/L (22-30); Chloride 100 mmol/L (98-107); Estimated Creatinine Clearance 69 ml/min; Glucose 268 mg/dl (70-99); Potassium 4.7 mmol/L (3.5-5.1); Sodium 137 mmol/L (135-145); eGFR > 60.00
--- NOTE | 2024-07-16 08:34 | PTCARENOTE ---
Abn Glucose 268, Suzanne and Petty at Dr. Rowley's office made aware.
[2024-07-17] VITALS (33 sets, daily range): BP systolic 81–168; BP diastolic 37–79
[2024-07-17] MEDS: PERIDEX 0.12% ORAL RINSE 15 ML PO (06:49)
[2024-07-17] MEDS: BACTROBAN NASAL 1 GRAM NASAL (06:49)
[2024-07-17] MEDS: NSS 500 IV (06:51)
[2024-07-17 06:56] LABS: Glucose - Point of Care 243 mg/dl (70-99)
[2024-07-17] MEDS: NOVOLOG vial 3 UNITS SC (07:13)
[2024-07-17 08:00] LABS: Glucose - Point of Care 220 mg/dl (70-99)
--- NOTE | 2024-07-17 09:57 | W.SUR.POST ---
Surgical Immediate Post Op
Note
Pre Op Diagnosis: Right carotid stenosis
Post Op Diagnosis: Right carotid stenosis
Procedure Performed: Right carotid endarterectomy with bovine pericardial patch angioplasty and EEG monitoring
Primary Surgeon: Gerson Rowley MD
special ed assistant: GILDA Young
Anesthesia: GETA
Estimated Blood Loss: 15 mL
Fluids: See anesthesia flowsheet
Drains/Shunts: N/A
Specimens/Cultures: Right carotid plaque
Doppler/Duplex/Angio (Y/N): Y
Complications: None
Operative Findings: Successful removal of right carotid plaque, upon awakening from anesthesia patient could move bilateral extremity lower extremity spontaneously and to command, tongue midline
--- NOTE | 2024-07-17 10:26 | OR.RPT ---
Operative Report
Operative Report
PROCEDURE DATE: 07/17/2024
Preoperative diagnosis: Critical right carotid artery stenosis, asymptomatic.
Postoperative diagnosis: Same
Procedure: Right carotid endarterectomy with bovine pericardial patch angioplasty and intraoperative EEG/SSEP monitoring.
Surgeon: Amrik
Human Resources Specialist: CARMEN Alexander, required for all aspects of procedure including assistance with traction/countertraction, following of suture line, assistance with closure.
Complications: None
Anesthesia: General
Indications for procedure:
History left carotid endarterectomy. Progressive stenosis on the right side now. Risk/benefits/alternatives of revascularization were discussed. Patient understood and wished to proceed.
Description of procedure:
Patient was identified brought to the operating room placed on the table in supine position. After the adequate administration of anesthesia and perioperative antibiotics she was prepped and draped in the standard surgical fashion. A standard
preoperative timeout was undertaken and everybody was in agreement the plan. A standard longitudinal incision was made in the right neck that was carried through the skin subcutaneous tissue. Using the electrocautery dissection was carried through
the platysma muscle layer and then alongside the anterior medial border of the sternocleidomastoid muscle. Then using a combination of sharp dissection with the Metzenbaum scissors and electrocautery I dissected along the anterior medial border of
the internal jugular vein. The common facial vein branch was noted to be slightly low, and was ligated between silk ties and then divided. I then deepened my retraction. The common carotid artery was identified and carefully dissected away from
the surrounding structures take great care to avoid any injury to the structures. The vagus nerve was noted anteriorly as soon as we entered the carotid sheath. I carefully dissected the surrounding tissue without grasping the actual nerve such
that I was able to dissect the nerve laterally off of the common carotid artery. I then carefully circumferentially dissected the common carotid artery. A vessel loop was passed around it which was double looped, but not yet tightened. I then
continued my dissection up the common carotid artery to the bulb staying only on the anterior surface of the carotid artery. I noted that there was a crossing nerve branch that crossed on the common carotid artery proximal to the level of the
bifurcation of the carotid. I was quite certain that this was not a hypoglossal nerve but to be sure I dissected distally in the vicinity of the hypoglossal nerve and identified what looked to be the hypoglossal nerve. Therefore I then clipped and
divided the small nerve branch, likely an ansa cervicalis. Then I carried the dissection up to the internal carotid artery and then to the distal internal carotid artery. I identified where it was soft and carefully circumferentially dissected the
internal carotid artery with minimal mobilization and passed a vessel loop around it. The patient was given an appropriate dose of heparin 7000 units. Next I dissected the anterior surface of the external carotid artery and superior thyroid
branches. These were then carefully circumferentially dissected with minimal mobilization and vessel loops passed around these which were double looped but not yet tightened. After 3 minutes of heparin circulation time and confirmation of
optimization of the blood pressure with my anesthesiology colleagues, I clamped the distal internal carotid artery where it was soft. There was no immediate EEG or SSEP changes. After 1 minute of test clamp time there was no changes noted.
Therefore at this point, the vessel loops on the external carotid artery and superior thyroid branches were tightened and the common carotid artery was clamped where it was soft proximally. An arteriotomy was made on the common carotid artery with
an 11 blade and extended using a Garcia scissor. I extended the arteriotomy onto the mid to distal internal carotid artery. There was a hardened plaque that at the bifurcation/very proximal internal carotid artery resulted in a severe focal
stenosis. A Vernon was then used to endarterectomized the plaque. An endarterectomy plane was created, and the plaque was then endarterectomized. Distally I feathered the plaque out to an endpoint in the distal internal carotid artery. Next, I
endarterectomized the intima back to normal intima in the common carotid artery, and the intima was cut flush there. I then grasped the plaque and everted plaque out of the origin of the external carotid artery. The plaque was then sent off for
specimen. The distal endpoint on the internal carotid artery was inspected and there was some posterior thickened plaque still present and therefore I used a Vernon to endarterectomized this back and was able to nicely cleanly and this and got an
excellent endpoint now. The origin of the external carotid artery was carefully visualized and any fine debris were removed with fine forceps. Proximal and distal endpoints were then carefully inspected. Any fine debris was removed with fine
forceps, and the intima was noted to be nicely adherent proximally distally. Next any fine debris were removed throughout the endarterectomy bed with fine forceps. I then flushed heparinized saline. I was very satisfied. Then, I used a bovine
pericardial patch to sew a patch angioplasty with a running 6-0 Prolene suture. Prior to completing and tying down my suture line, I backbled sequentially each branch and reclamped each branch prior to unclamping the next branch. I then irrigated
with heparinized saline. Then I completed and tied down my suture line. We then restored flow in the common carotid and external carotid arteries. Finally, we released flow in the internal carotid artery. There was excellent pulsatile flow in
all 3 vessels. There was an excellent Doppler signal in the internal carotid artery distal to the patch with a good normal low resistance Doppler signal. There was a good Doppler signal in the external carotid artery as well. 6-0 Prolene
kgnxlb-fa-varyt sutures were placed along any bleeding points along the suture line. Protamine was given to reverse the heparin. Hemostasis was completely achieved. We then irrigated and confirmed full hemostasis. We then closed in layers with
2-0 Vicryl layer to reapproximate the sternocleidomastoid muscle, followed by 3-0 Vicryl platysma muscle running layer, followed by 4 Monocryl subcuticular stitch. Dermabond was applied. The patient tolerated procedure well. She awoke moving all
extremities to command with tongue in the midline.
[2024-07-17 10:29] LABS: Hematocrit 31.9 % (37.0-47.0); Hemoglobin 9.7 g/dL (12.0-16.0); Mean Corp Hgb Conc. 30.4 g/dL (33.0-37.0); Mean Corpuscular Hgb 25.7 pg (27.0-31.0); Mean Corpuscular Volume 84.6 fL (81.0-99.0); Mean Platelet Volume 11.1 fL (7.4-10.4); Platelet Count 212 10^3/uL (130-400); Red Blood Cell Count 3.77 10^6/uL (4.20-5.40); Red Cell Dist. Width 15.3 % (11.5-14.5); White Blood Cell Count 11.6 10^3/uL (4.8-10.8)
[2024-07-17 10:36] LABS: Glucose - Point of Care 277 mg/dl (70-99)
[2024-07-17] MEDS: NOVOLOG vial 2 UNITS SC (10:41)
[2024-07-17 10:51] LABS: ALT (SGPT) 29 U/L (0-35); AST (SGOT) 35 U/L (14-36); Albumin 3.7 g/dl (3.5-5.0); Alkaline Phosphatase 93 U/L (38-126); Blood Urea Nitrogen 14 mg/dl (7-17); Calcium 8.1 mg/dl (8.4-10.2); Carbon Dioxide 20 mmol/L (22-30); Chloride 104 mmol/L (98-107); Direct Bilirubin 0.2 mg/dl (0.0-0.4); Estimated Creatinine Clearance 69 ml/min; Glucose 269 mg/dl (70-99); Potassium 4.8 mmol/L (3.5-5.1); Sodium 135 mmol/L (135-145); Total Bilirubin 0.5 mg/dl (0.2-1.3); Total Protein 6.2 g/dl (6.3-8.2); eGFR > 60.00
--- NOTE | 2024-07-17 11:43 | CON.INTV ---
Consultation
Consultation Request
Date/Time Consultation Requested: 07/17/2024-1:30 PM
Date/Time Consultation Performed: 07/17/2024-1:30 PM
Requesting Provider: Vascular surgery
Performing Provider: Dr. Pinto
Reason for Consultation: Postoperative critical care management
Medical History
-
Chief Complaint: Carotid stenosis
History of Present Illness:
74-year-old former smoking female with a history of hypertension, hyperlipidemia, diabetes, CAD, neuropathy, ELISE not on CPAP who was found to have asymptomatic bilateral carotid artery stenosis and underwent left CEA-snuff grinder consulted for
postoperative critical care management 07/17/2024. Patient is seen postoperatively in the surgical intensive care unit. She denies any shortness of breath, chest pain, chest tightness, productive cough, abdominal pain, nausea, weakness or swelling.
She does admit to some incisional pain. She states that she was never diagnosed with any lung disease. She quit smoking 10 years ago.
Past Medical History
Past Medical History: None (Hypertension. Hyperlipidemia. Diabetes. CAD/CABG. Neuropathy. ELISE not on CPAP. Osteopenia. Crohn's disease. Neuropathy. BSO. CABG. D&C.)
Social History
Tobacco: Former Smoker ([id number] quit 10 years ago)
Alcohol: None
Drug: None
Living: With Family
Occupational Exposures: No known asbestos exposure
Environmental Exposures: No known tuberculosis exposure
Family History
Family History: Other (Father-gangrene of small intestines. Mother CAD and breast cancer as well as diabetes. Sister-CAD. Brother-CAD.)
Allergies / Home Medications
Allergies
Allergy/AdvReac Type Severity Reaction Status Date / Time
No Known Allergies Allergy Verified 07/11/24 11:14
Home Medications
�Medication �Instructions �Recorded �Confirmed �Last Taken �Type
aspirin 81 mg tablet,delayed 81 mg PO DAILY Blood Clot 07/05/10 07/17/24 07/17/24 04:30 History
release Prevention/Tx
cholecalciferol (vitamin D3) 50 50 mcg PO QPM Supplement 03/29/23 07/17/24 07/16/24 09:00 History
mcg (2,000 unit) capsule (Vitamin
D3)
citalopram 20 mg tablet 20 mg PO DAILY Mental Health 03/29/23 07/17/24 07/16/24 09:00 History
metformin 1,000 mg tablet 1,000 mg PO BID Diabetes 03/29/23 07/17/24 07/16/24 22:00 History
repaglinide 2 mg tablet 2 mg PO BID Diabetes 03/29/23 07/17/24 07/16/24 22:00 History
metoprolol succinate 25 mg 25 mg PO DAILY Blood Pressure 08/23/23 07/17/24 07/16/24 09:00 History
tablet,extended release 24 hr
pantoprazole 40 mg tablet,delayed 40 mg PO DAILY #30 tabs 01/15/24 07/17/24 07/16/24 09:00 Rx
release (Protonix)
Review of Systems
-
Unable to Obtain full review of systems at this time due to: Other (Per HPI)
Vitals / Labs / Diagnostic Testing
Vital Signs
Temp Pulse Resp BP Pulse Ox
98 F 88 12 115/50 95
07/17/24 11:00 07/17/24 11:15 07/17/24 11:15 07/17/24 11:15 07/17/24 11:15
Lab Data
07/17/24 10:18
07/17/24 10:18
Diagnostic Testing:
Physical Exam
-
Exam:
Well-nourished and well-developed in no apparent distress
HEENT-atraumatic, normocephalic, ice pack over right neck incision
Neck-supple, no JVD, no bruit
Heart-regular rate and rhythm-no murmurs, rubs or gallops
Chest-diminished breath sounds, no wheezes or crackles
Back-no tenderness
Abdomen-soft, nontender, nondistended, no hepatosplenomegaly
Extremities-no cyanosis, clubbing, edema and good peripheral pulses
Integument-intact, no rashes, lesions or ecchymosis
Neurology-alert and oriented, nonfocal motor and sensory exam
Assessment
-
74-year-old former smoking female with a history of hypertension, hyperlipidemia, diabetes, CAD, neuropathy, ELISE not on CPAP who was found to have asymptomatic bilateral carotid artery stenosis and underwent left CEA-snuff grinder consulted for
postoperative critical care management 07/17/2024.
Right carotid artery stenosis
Status post right CEA-Dr. Rowley 07/17/2024
Mild leukocytosis
Gdckit-whfqowtvwx-timnngoqqb 9.7
Hyperglycemia
Conditions present prior to admission:
Recent hospitalization 01/10 through 01/15/2024-anemia due to GI bleed-endoscopy without source, colonoscopy-diverticulosis and multiple ulcers
Hypertension.
Hyperlipidemia.
Diabetes.
CAD/CABG x -2023
Neuropathy.
Carotid stenosis-status post left CEA 08/2023 and right CEA 07/2024
ELISE not on CPAP.
Osteopenia.
Crohn's disease.
Neuropathy.
Former smoker-2 packs a day for over 40 years-quit 10 years ago
BSO. CABGX 3-06/22/2023. D&C.
Plan
Postoperative surgical intensive care unit monitoring
Supplemental oxygen as needed
Incentive spirometry
Aspiration precautions
Nebulizers if needed-currently not bronchospastic
Neuro and vascular checks per protocol
Monitor blood pressure/perfusion pressures and pulses closely
Vascular surgery following-correspondence and operative notes reviewed
Monitor hemoglobin
Transfuse if needed
Monitor blood sugar
Insulin supplementation as needed
DVT prophylaxis
Early nutrition
Early mobilization
Recommend outpatient pulmonary/sleep disorders [id number], yearly low-dose lung cancer screening CT, potential retrial of CPAP, etc.
Critical care statement: A total of 55 minutes of critical care time was provided for this patient today. This includes management of ventilator, spontaneous breathing trial, arterial blood gases, pressors, of unstable vital signs, evaluation of the
patient at bedside, reviewing the patient's pertinent medical records including radiographs, microbiology, laboratory evaluations, and discussion with primary team and critical care nursing.
Diagnostic data:
Chest x-ray 04/18/2023-NAD
Chest x-ray 06/23/2023-interval removal of left chest tube
Chest x-ray 07/15/2024-NAD
Transesophageal echocardiogram 06/20/2023-EF 60-65%, stage I diastolic dysfunction, moderate aortic regurgitation
Data Reviewed
-
EKG: Report reviewed by me
Radiology: Report reviewed by me
Medical Tests (Nuc Med, Echo etc): Report reviewed by me
Labs: Labs reviewed by me
Old Records: Reviewed
Critical Care Time (in minutes): 55
[2024-07-17] MEDS: TYLENOL 650 MG PO (12:50)
[2024-07-17] MEDS: NSS 1000 IV (13:06)
[2024-07-17] MEDS: NOVOLOG FLEXPEN-LOW RESISTANCE SC ×2 (14:38→18:00)
--- NOTE | 2024-07-17 16:51 | CM ---
CM following for DC planning needs.
Attempted to meet w/ patient at bedside to complete initial assessment. Pt. was sleeping soundly. Will re-attempt.
[2024-07-17] MEDS: GLUCOPHAGE 1000 MG PO (17:49)
[2024-07-17] MEDS: VITAMIN D3 (cholecalciferol) 50 MCG PO (17:49)
[2024-07-17] MEDS: LIPITOR 10 MG PO (17:49)
[2024-07-17] MEDS: PRANDIN 2 MG PO (17:49)
--- NOTE | 2024-07-17 19:30 | PTCARENOTE ---
Received pt from [facility]. Walking rounds completed. Pt assessment completed in bed. Pt is AAOX4, no neuro deficits noted. NSR on monitor, HR 80, B/P 107/48. L a-line zeroed and calibrated. Pulses palpable. Negative edema. Lungs clear, slightly
diminished in bases. POX 94% RA. NBS, abdomen soft, round, non-tender to touch. Pt voiding clear, yellow urine. WNL. R neck incision approximated, surgical glue present. Incision site stable. Discussed plan of care with pt. Pt agrees with plan. Will
continue to monitor pt needs.
[2024-07-17] MEDS: HEPARIN 5000 UNITS SC (20:12)
[2024-07-17] MEDS: ROXICODONE 5 MG PO (20:13)
--- NOTE | 2024-07-17 21:30 | PTCARENOTE ---
Pt BS obtained and resulted @ 369. Notified ICU DOOR PERSON Kesha. One time dose of Novalog ordered and given. (SEE MAR). Pt resting in bed. Will continue to monitor pt needs.
[2024-07-17 21:37] LABS: Glucose - Point of Care 369 mg/dl (70-99)
[2024-07-17] MEDS: NOVOLOG FLEXPEN 5 UNITS SC (21:57)
--- NOTE | 2024-07-17 23:06 | PTCARENOTE ---
VSS. NSR on monitor. HR 79. B/P 122/50. POX 97% 2LNC. Pt AAOx4 with no neuro deficits. Pt resting in bed. Will continue to monitor pt needs.
[2024-07-18] VITALS (23 sets, daily range): BP systolic 106–148; BP diastolic 48–95
[2024-07-18] MEDS: NSS 1000 IV (00:27)
[2024-07-18 03:46] LABS: Hematocrit 27.5 % (37.0-47.0); Hemoglobin 8.5 g/dL (12.0-16.0); Mean Corp Hgb Conc. 30.9 g/dL (33.0-37.0); Mean Corpuscular Hgb 25.6 pg (27.0-31.0); Mean Corpuscular Volume 82.8 fL (81.0-99.0); Mean Platelet Volume 11.4 fL (7.4-10.4); Platelet Count 186 10^3/uL (130-400); Red Blood Cell Count 3.32 10^6/uL (4.20-5.40); Red Cell Dist. Width 15.4 % (11.5-14.5); White Blood Cell Count 9.5 10^3/uL (4.8-10.8)
--- NOTE | 2024-07-18 03:50 | PTCARENOTE ---
VSS. Pt in NSR on monitor. HR 76, B/P 120/52. Morning labs obtained and sent. AM care provided. Pt resting in bed. Will continue to monitor pt needs.
[2024-07-18 03:59] LABS: APTT 32.3 Sec (23.4-35.0); INR 1.09; PT 14.7 Sec (11.4-14.6)
[2024-07-18 04:12] LABS: Blood Urea Nitrogen 20 mg/dl (7-17); Calcium 8.6 mg/dl (8.4-10.2); Carbon Dioxide 20 mmol/L (22-30); Chloride 103 mmol/L (98-107); Estimated Creatinine Clearance 69 ml/min; Glucose 258 mg/dl (70-99); Magnesium 1.6 mg/dl (1.6-2.3); Potassium 4.1 mmol/L (3.5-5.1); Sodium 136 mmol/L (135-145); eGFR > 60.00
[2024-07-18] MEDS: ROXICODONE 5 MG PO ×2 (04:16→08:38)
--- NOTE | 2024-07-18 07:29 | W.PN.INTV ---
Today's Communication / Plan
Recommendations
deline,
Increase activity
Wean FiO2
Transfer out of ICU-call pulmonary if respiratory issues arise
Assessment
-
74-year-old former smoking female with a history of hypertension, hyperlipidemia, diabetes, CAD, neuropathy, ELISE not on CPAP who was found to have asymptomatic bilateral carotid artery stenosis and underwent left CEA-appliance sales associate consulted for
postoperative critical care management 07/17/2024.
Right carotid artery stenosis
Status post right CEA-Dr. Rowley 07/17/2024
Mild leukocytosis
Pcrgpg-ojwsoednav-wautiwwibk 9.7
Hyperglycemia
Conditions present prior to admission:
Recent hospitalization 01/10 through 01/15/2024-anemia due to GI bleed-endoscopy without source, colonoscopy-diverticulosis and multiple ulcers
Hypertension.
Hyperlipidemia.
Diabetes.
CAD/CABG x
Neuropathy.
Carotid stenosis-status post left CEA 08/2023 and right CEA 07/2024
ELISE not on CPAP.
Osteopenia.
Crohn's disease.
Neuropathy.
Former smoker-2 packs a day for over 40 years-quit 10 years ago
BSO. CABGX 3-06/22/2023. D&C.
Plan
Hemodynamically and neurovascularly intact
Wean supplemental oxygen
Incentive spirometry encourage
Aspiration precautions
Monitor hemoglobin
Transfuse if needed
Monitor blood sugars
Insulin supplementation if needed
Neuro and vascular checks per protocol also continue
Vascular surgery closely
DVT prophylaxis recommended
Nutrition
Increase activity/physical therapy
Recommend outpatient pulmonary/sleep disorders [id number], yearly low-dose lung cancer screening CT, potential retrial of CPAP, etc.
Patient can be transferred out of ICU-call pulmonary if respiratory issues arise
Reviewed the patient's pertinent medical records including radiographs, microbiology, laboratory evaluations, and discussion with primary team, consultants, pharmacy, nutrition, physical therapy, case management, charge nurse, critical care
nursing, and respiratory therapy.
Diagnostic data:
Chest x-ray 04/18/2023-NAD
Chest x-ray 06/23/2023-interval removal of left chest tube
Chest x-ray 07/15/2024-NAD
Transesophageal echocardiogram 06/20/2023-EF 60-65%, stage I diastolic dysfunction, moderate aortic regurgitation
Subjective Dataa
Subjective Data
Date of Service:
Date of Service: July 18, 2024
Chief Complaint: Director Of Strategic Sourcing Follow Up and Pulmonary Follow Up
Subjective:
Feels well, mild incisional pain, no shortness of breath, chest pain or abdominal pain
Review of Systems
General: Other (Per HPI)
Objective Data
Data Reviewed
Vital Signs / I&O / Oxygen:
Vital Signs
Temp Pulse Resp BP Pulse Ox
98.4 F 80 11 131/56 96
07/17/24 20:06 07/18/24 05:00 07/18/24 05:00 07/18/24 05:00 07/18/24 05:00
Intake and Output
07/17/24 07/18/24 07/19/24
06:59 06:59 06:59
Intake Total 995 / 995
Output Total 2650 / 2650
Balance -1655 / -1655
SaO2 96
Nasal Cannula flow liters per 2
minute
Physical Exam
General: Respiratory Distress (n) and Comfortable
HEENT: Normocephalic, Anicteric and Moist Mucous Membranes
Cardiovascular: Regular Rhythm
Respiratory: Wheeze (n), Crackles (n), Rhonchi (n), Non-Labored Respirations and Accessory Resp Muscle Use (n)
GI: Soft, Non Distended and Non Tender
Neurology: Awake, Alert and No Motor Deficits
Skin: Warm, Good Color, Cyanosis (n) and Jaundice (n)
Labs/Micro/Reports
Lab Data
07/18/24 03:19
07/18/24 03:19
Laboratory Results
07/18/24
03:19
PT 14.7 H
INR 1.09
APTT 32.3
--- NOTE | 2024-07-18 08:08 | W.PN.VS ---
Today's Communication / Plan
-
Seen and assessed with Dr. Rowley
Assessment/Plan
-
POD 1 right CEA
Plan:
-DC A-line
-DC IV fluids
-Out of bed/ambulate
-Regular diet
-P.o. medications
-Likely DC later today
Subjective Data
-
Date of Service: July 18, 2024
Pt seen at bedside this am with Dr Rowley. Patient presented at this time. No events overnight.
Objective Data
-
Vital Signs
Temp Pulse Resp BP Pulse Ox
98.4 F 80 11 131/56 96
07/17/24 20:06 07/18/24 05:00 07/18/24 05:00 07/18/24 05:00 07/18/24 05:00
Intake and Output
07/17/24 07/18/24 07/19/24
06:59 06:59 06:59
Intake Total 995 / 995
Output Total 2650 / 2650
Balance -1655 / -1655
Intake:
IV fluids (Total) 995 / 995
Nss 1,000 ml @ 80 mls/hr IV . 480 / 480
[id number] [facility] Rx#:[id number]
normosol 515 / 515
Output:
Urine, Voided 2650 / 2650
Lab Results
07/18/24 03:19
07/18/24 03:19
Calcium 8.6 mg/dl (8.4-10.2) 07/18/24 03:19
Phosphorus 4.0 mg/dl (2.5-4.5) 07/18/24 03:19
Magnesium 1.6 mg/dl (1.6-2.3) 07/18/24 03:19
Total Bilirubin 0.5 mg/dl (0.2-1.3) 07/17/24 10:18
Direct Bilirubin 0.2 mg/dl (0.0-0.4) 07/17/24 10:18
AST 35 U/L (14-36) 07/17/24 10:18
ALT 29 U/L (0-35) 07/17/24 10:18
Alkaline Phosphatase 93 U/L (38-126) 07/17/24 10:18
Total Protein 6.2 g/dl (6.3-8.2) L 07/17/24 10:18
Albumin 3.7 g/dl (3.5-5.0) 07/17/24 10:18
Physical Exam
-
AAOx3
No tachypnea on room air
No tachycardia
Abdomen soft
Neck site clean, dry, intact, flat, soft
Moves all extremities equally
Tongue midline
[2024-07-18] MEDS: PROTONIX 40 MG PO (08:38)
[2024-07-18] MEDS: CELEXA 20 MG PO (08:38)
[2024-07-18] MEDS: ASPIR LOW (ENTERIC COATED) 81 MG PO (08:38)
[2024-07-18] MEDS: PRANDIN 2 MG PO (08:38)
[2024-07-18] MEDS: HEPARIN 5000 UNITS SC (08:39)
[2024-07-18] MEDS: TOPROL XL 25 MG PO (08:39)
[2024-07-18] MEDS: GLUCOPHAGE 1000 MG PO (08:39)
[2024-07-18] MEDS: NOVOLOG FLEXPEN-LOW RESISTANCE 2 UNITS SC (08:39)
[2024-07-18 08:41] LABS: Glucose - Point of Care 207 mg/dl (70-99)
[2024-07-18] MEDS: TYLENOL 650 MG PO (09:46)
--- NOTE | 2024-07-18 10:50 | PTCARENOTE ---
Pt received from prior RN. Pt is Ox3 and appropriate, moving all extremities, no numbness, + pulses. NSR on tele. A line removed without issue. Breath sounds clear on RA. Good appetite on diabetic diet. Currently sitting up in the chair. She
complains of 5/10 neck pain after receiving oxy 1 hr ago. Tylenol given and an ice pack was applied to her neck with instructions to remove after 20 mins. Call jay within reach, pt makes needs known.
[2024-07-18 12:14] LABS: Glucose - Point of Care 292 mg/dl (70-99)
[2024-07-18] MEDS: NOVOLOG FLEXPEN-LOW RESISTANCE 3 UNITS SC (12:15)
--- NOTE | 2024-07-18 13:02 | W.DS.TRANS ---
DC Summary - [employer] Program Director
-
Discharge Instructions:
Discharge Diagnosis/Procedures Right carotid endarterectomy with bovine
pericardial patch angioplasty and EEG monitoring
Diet As tolerated
Activity No strenuous activity
Driving Restrictions Not until seen by your Dr
Bathing Restrictions OK to Shower
Others Tests LFT lab draw within the next 2 months,
prescription provided
Instructions:
Stand-Alone Forms: DC Instr - Vascular OR
Changes to Home Medications: Yes
Discharge Medications:
DC Medications w/original date entered in [facility]
aspirin 81 mg tablet,delayed release 81 mg PO DAILY Blood Clot Prevention/Tx 07/05/10
cholecalciferol (vitamin D3) 50 mcg (2,000 unit) capsule (Vitamin D3) 50 mcg PO QPM Supplement 03/29/23
citalopram 20 mg tablet 20 mg PO DAILY Mental Health 03/29/23
metformin 1,000 mg tablet 1,000 mg PO BID Diabetes 03/29/23
repaglinide 2 mg tablet 2 mg PO BID Diabetes 03/29/23
metoprolol succinate 25 mg tablet,extended release 24 hr 25 mg PO DAILY Blood Pressure 08/23/23
pantoprazole 40 mg tablet,delayed release (Protonix) 40 mg PO DAILY #30 tabs 01/15/24
atorvastatin 10 mg tablet 10 mg PO QPM #90 tabs 07/18/24
Home Medication Changes
Added:
atorvastatin 10 mg tablet 10 mg PO QPM #90 tabs 07/18/24
Pending Results: No
--- NOTE | 2024-07-18 13:10 | W.DCSUMMARY ---
Discharge Summary
Discharge Data
Date of Admission: 07/17/24
Date of Discharge: 07/18/24
-
Pending Results: No
Hospital Course
Attending: Amrik
Consultants: Pulmonary medicine
Allergies: NKDA
Procedure with date: 07/17/2024: Right carotid endarterectomy with bovine pericardial patch angioplasty and EEG monitoring
History of present illness: The patient is an 74-year-old female with multiple medical conditions including: carotid stenosis, osteopenia, Crohn's disease, hyperlipidemia, diabetes, family history of colon cancer, depression, hypertension, former
smoker, CAD, obstructive sleep apnea. Patient presented on 07/17/2024 for scheduled procedure with Dr. Rowley. Patient presented at baseline health with no reports of recent illness or trauma.
Hospital Course: Briefly, the patient underwent scheduled CEA without complications, and recovered in PACU. Following recovery phase one and two patient was transferred to intensive care unit per protocol for continued hemodynamic monitoring.
Testing Lead consulted to aid in medical management from a critical care perspective. POD #1 (07/18/2024) Patient neurologically intact, face symmetrical, and tolerating PO diet. Surgical neck site clean, dry, and intact with suture line well
approximated and soft. No evidence of hematoma. Arterial line and IV fluids discontinued. Patient able to ambulate without difficulty or incident. Patient stable for discharge to home.
Prescriptions and follow up appointment are included in the DC summary computer technician note. All instructions were given to the patient in both written and verbal form and the patient expressed understanding.
Discharge Plan
-
Patient Disposition: Home (Routine Discharge)
Discharge Diagnosis/Procedures: Right carotid endarterectomy with bovine pericardial patch angioplasty and EEG monitoring
Condition: Good
Diet: As tolerated
Activity: No strenuous activity
Driving Restrictions: Not until seen by your Dr
Bathing Restrictions: OK to Shower
Others Tests: LFT lab draw within the next 2 months, prescription provided
Activity Restrictions/Additional Instructions:
If you experience severe constant headache, weakness to an arm or leg, change in vision, trouble speaking or any stroke-like symptom, call 911 immediately
If you experience swelling, increased bruising, drainage from neck site, or fever, please call the office
Stand Alone Forms: DC Instr - Vascular OR
Referrals:
Anne-Marie Rivero PA-C [Specified Professional Personl] - 07/31/24 9:30 am
Alysia Quiroz DO [Primary Care Provider] - in one to two months (Please call for appointment in 2 months, you have been started on statin therapy and will have LFT lab draw prior to this appointment)
Micky Pinto MD [Active] - in two to four weeks (Dr. Pinto or [employer]ER-PFTs, 6-minute walk test, and screen for yearly low-dose lung cancer screening CT, history of ELISE)
Prescriptions:
New
atorvastatin 10 mg Tablet
10 mg PO QPM Qty: 90 0RF
Continued
aspirin 81 MG tablet,delayed release (DR/EC)
81 mg PO DAILY
repaglinide 2 mg Tablet
2 mg PO BID
citalopram 20 mg Tablet
20 mg PO DAILY
metformin 1,000 mg Tablet
1,000 mg PO BID
cholecalciferol (vitamin D3) [Vitamin D3] 50 mcg (2,000 unit) Capsule
50 mcg PO QPM
metoprolol succinate 25 mg Tablet Extended Release 24 Hr
25 mg PO DAILY
pantoprazole [Protonix] 40 mg tablet,delayed release (DR/EC)
40 mg PO DAILY Qty: 30 0RF
Discharge Orders:
Discharge Patient (As Directed); Ordered 07/18/24
Ordered By: Mona Boykin
Care Plan Goals
Care Plan Goals:
Problem: Readiness for enhanced knowledge related to diagnosis and treatment plan
Goal: Understand your diagnosis and treatment plan needs, including medications if applicable.
Instructions: Know your diagnosis, underlying causes and treatment plan options, including medications if applicable. Consult with your health care team to learn about your diagnosis and treatment plan, including medications if applicable.
Discharge Date and Time
Print Language: NIGERIAN
--- NOTE | 2024-07-18 13:45 | CM ---
CM following for DC planning needs.
Met w/ patient at bedside to complete initial assessment. Attempted yesterday x2, but patient was sleeping soundly.
Pt. resides w/ spouse in a private, 2 story home w/ [address]. Functionally, patient is indep. w/ ADLs, mobility without the use of any assisted device.
Pt. has RX plan and uses [facility] on [facility] in [place].
Anticipated DC plan for home once medically stable. There are no anticipated DC needs.
PLAN: HOME, no needs.
== END 2024-07-18 14:39 | disposition home or self-care (01) | DRG 39 ==
LOC: CVICU 06:20
PROVIDERS: Nurse Practitioner; ADMITTING PHYSICIAN Surgery Vascular Surgery; CONSULT PHYSICIAN Internal Medicine Critical Care Medicine; PRIMARYCARE PHYSICIAN Family Medicine
PROC: 03CH0ZZ Extirpation of Matter from Right Common Carotid Artery, Open Approach (ICD-10-PCS; 2024-07-17)
PROC: 03UH0KZ Supplement Right Common Carotid Artery with Nonautologous Tissue Substitute, Open Approach (ICD-10-PCS; 2024-07-17)
DX: I65.21 Occlusion and stenosis of right carotid artery (principal); E11.40 Type 2 diabetes mellitus with diabetic neuropathy, unspecified; E11.65 Type 2 diabetes mellitus with hyperglycemia; M85.80 Other specified disorders of bone density and structure, unspecified site; E78.5 Hyperlipidemia, unspecified; I10 Essential (primary) hypertension; F32.A Depression, unspecified; I25.10 Atherosclerotic heart disease of native coronary artery without angina pectoris; G47.33 Obstructive sleep apnea (adult) (pediatric); D72.829 Elevated white blood cell count, unspecified; D64.9 Anemia, unspecified; Z87.891 Personal history of nicotine dependence; Z95.1 Presence of aortocoronary bypass graft
CPT/HCPCS: 88304; 88311; 35301; 36415; 71046; 80048; 80076; 82962; 83735; 84100; 85025; 85027; 85610; 85730; 86850; 86900; 86901; 90662; 95938; 95941; 95955; G0008

== ENCOUNTER → 2024-09-05 11:03 | Outpatient (REF) | payer MEDICARE, SELFPAY | LOC: DHVS 11:03 | PROVIDERS: ATTENDING PHYSICIAN Physician Assistant; FAMILY PHYSICIAN Family Medicine | DX: I65.23 Occlusion and stenosis of bilateral carotid arteries (principal) | CPT/HCPCS: 93880 ==

== ENCOUNTER → 2024-09-10 10:38 | Outpatient (REF) | payer MEDICARE, SELFPAY | LOC: WDC 10:38 | PROVIDERS: ATTENDING PHYSICIAN Family Medicine | DX: Z12.31 Encounter for screening mammogram for malignant neoplasm of breast (principal) | CPT/HCPCS: 77063; 77067 ==

== ENCOUNTER → 2025-03-19 13:53 | Outpatient (REF) | payer MEDICARE, SELFPAY | LOC: RAD 13:53 | PROVIDERS: ATTENDING PHYSICIAN Surgery Vascular Surgery; FAMILY PHYSICIAN Family Medicine | DX: I65.23 Occlusion and stenosis of bilateral carotid arteries (principal); I73.9 Peripheral vascular disease, unspecified | CPT/HCPCS: 93880; 93922; 93925 ==